=== PATIENT | female | born 1945 | race Caucasian/White ===

== ENCOUNTER 2019-03-28 08:14 | Inpatient (IN) ==
[~2019-03-28 08:14] MED LIST: BUPIVACAINE HCL/EPINEPHRINE 50 ML VIAL ONE; ISOPROPYL ALCOHOL 480 APPL BTL MC ONE; LIDOCAINE HCL 50 ML VIAL ONE; MIDAZOLAM HCL/PF 5 MG/ML VIAL ONE; MORPHINE SULFATE 15 MG TABLET.SA PO PRN; PROPOFOL VIAL IV ONE; ROPIVACAINE HCL/PF 100 MG, EPINEPHrine 0.2 MG, KETOROLAC TROMETHAMINE 15 MG in NORMAL S... IJ PRN; TRANEXAMIC ACID 1,000 MG in NORMAL SALINE 100 ML IV PRN; ceFAZolin SODIUM 1 GM VIAL IV PRN; ceFAZolin SODIUM 1 GM VIAL ONE
[2019-03-28] MEDS: RINGER'S SOLUTION,LACTATED 1,000 ML IV PRN ×4 (09:10→13:41)
--- NOTE | 2019-03-28 09:32 | ANES ---
Anesthesia Pre Procedure Eval Vitals/Labs: Last Vital Signs Temp 36.6 C 03/28/19 09:11 Pulse 77 03/28/19 09:11 Resp 18 03/28/19 09:11 BP 126/55 03/28/19 09:11 Pulse Ox 97 03/28/19 09:11 HOME MEDICATIONS Insulin Aspart [Novolog] 0 - 20 unit SQ ACHS PRN 02/14/13 [Last Taken 03/27/19] Nitroglycerin [Nitrostat] 0.4 mg SL [id number] PRN 02/14/13 [Last Taken Unknown] Blood-Glucose Meter [Blood Glucose Monitoring] 1 ea MC QID 12/01/16 [Last Taken 03/27/19] Cholecalciferol (Vitamin D3) [Vitamin D] 2,000 unit PO Q7D 12/01/16 [Last Taken 03/27/19] carvedilol 3.125 mg tablet 6.25 mg PO ONCE tab 10/06/17 [Last Taken 03/28/19] furosemide 20 mg tablet 40 mg PO DAILY 10/06/17 [Last Taken 03/27/19] acetaminophen 500 mg tablet 500 mg PO Q6H PRN 10/07/17 [Last Taken Unknown] albuterol sulfate 2.5 mg IH QID PRN #180 ml 04/21/18 [Last Taken Unknown] insulin degludec 100 unit/mL (3 mL) subcutaneous pen 56 unit SUB-Q HS ml 06/10/18 [Last Taken 03/26/19] Albuterol Sulfate [Proventil Hfa] 2 inh INHALATION Q4H PRN 09/29/18 [Last Taken Unknown] Allopurinol [Zyloprim] 300 mg PO DAILY 09/29/18 [Last Taken 03/27/19] Diphenhydramine HCl [Children's Benadryl Allergy] 12.5 mg PO HS PRN 09/29/18 [Last Taken Unknown] Ipratropium/Albuterol Sulfate [Iprat-Albut 0.5-3(2.5) mg/3 ml] 3 ml INHALATION Q4H PRN 09/29/18 [Last Taken Unknown] lisinopril 10 mg tablet 5 mg PO DAILY #45 tab 11/01/18 [Last Taken 03/28/19] levothyroxine 88 mcg tablet 88 mcg PO DAILY #30 tab 11/02/18 [Last Taken 03/27/19] traMADol HCL [Ultram] 50 mg PO QID PRN #120 tab 11/08/18 [Last Taken Unknown] duloxetine 60 mg capsule,delayed release 60 mg PO DAILY #30 cap 01/19/19 [Last Taken 03/27/19] Mag Salicylat/Acetaminoph/Caff [Back Pain-Off Tablet] 1 ea PO PRN PRN 03/28/19 [Last Taken Unknown] Syrge-Ndl,Ins 0.5 ml Half Kael [Techlite Insulin Syringe] 0 ea .ROUTE .MEDSUPPLY 03/28/19 [Last Taken 03/27/19] Syringe and Needle,Insulin,1Ml [Techlite Insulin Syringe] 0 ea .ROUTE .MEDSUPPLY 03/28/19 [Last Taken 03/27/19] Allergies/Adverse Reactions: Allergies Allergy/AdvReac Type Severity Reaction Status Date / Time Penicillins AdvReac Mild CAUSES Verified 03/24/19 08:47 YEAST INFECTION - Planned Procedure Planned Procedure: LTKA on 03/28, RTKA on 03/30 Medication List Reviewed:: Yes Allergies Verified: Yes Medical History (Last Reviewed 03/28/19 @ 09:30 by Kael Elizondo CRNA) Asthma Onset Date: 1969 CAD (coronary artery disease) Status post myocardial infarction w/coronary artery stenting CHF (congestive heart failure) CHF with LVEF 19% S/P PPm Chronic kidney disease, stage 3 Depression Onset Date: 1991 Diabetes Type II Fibrocystic breast disease (FCBD) in female Hyperlipidemia Onset Date: Unknown Hypothyroidism Onset Date: 1969 Migraine МАРИЯ (obstructive sleep apnea) does not wear CPAP due to clausterphobia Obesity PUD (peptic ulcer disease) Onset Date: 1997 Pacemaker Onset Date: 2010 with defib Polymyalgia rheumatica Rib fractures Steatohepatitis, nonalcoholic With possible cirrhosis and portal HTN based on CT findings. Dr. Borges [facility] Surgical History (Last Reviewed 03/28/19 @ 09:30 by Kael Elizondo CRNA) Cataract surgery 04/2015, 05/2015 left, right Defibrillator 2010 [place] History of appendectomy 1992 with gallbladder History of cholecystectomy 1992 [facility] - lap History of temporal artery biopsy 02/15/13 02/22/13 Dr. Elizabeth 02/15/13 - right. 02/22/13 - left. Benign History of total abdominal hysterectomy and bilateral salpingo-oophorectomy , pt states urethra torn during surgery and had to be repaired; had prolonged catheter placement after surgery Hx of Epidural Steroid Injection 11/21/13 L5-S1 Hx of angioplasty 2009, 03/2011. 2009 w/stent Hx of section 1966, 1968, 1972 Hx of knee surgery ?1982 Left knee ?Lateral Release Hx of placement of pacemaker 07/19/10, 02/16/17 Dr Tim in [place], [place] ICD placement. Replaced 2016. Family History (Last Reviewed 03/28/19 @ 09:30 by Kael Elizondo CRNA) Father , Age 86. Blood clot, [place], 2 aneurysms Myocardial infarction Mother , Age 79 Cancer Breast Daughter Alive and well Daughter Alive and well Son Alive and well - Family Anesthesia History Family History:: no untoward family reactions to anesthesia, no familial bleeding tendencies, no family history of clotting disorders, no family history of premature - Airway/Neck/Teeth Within Normal Limits:: Yes Neck Exam: full range of motion Mallampatti Score: 3 Thyromental (T-M) distance: > 6 cm Mandibulo Hyoid distance: > 3 cm - Respiratory Respiratory Physical: wheezing - left Smoking Status: Never smoker Sleep Apnea currently treated: Yes Sleep Apnea by current assessment: Yes - Cardiovascular Cardiac History: arrhythmia - pacemaker/defibulater, hypertension, hyperlipidemia Tolerate Activity: Fair Heart Sounds: S1 & S2, Regular - Anesthesia Assessment and Plan ASA Class: PS, III Anesthesia Type Plan: Block - adductor canal block for post op pain relief, Spinal
[2019-03-28] MEDS ORDERED: MORPHINE SULFATE 2 MG/ML DISP.SYRIN IV PRN (11:31)
[2019-03-28] MEDS ORDERED: MAG HYDROX/ALUMINUM HYD/SIMETH 30 ML UDC PO PRN (11:31)
[2019-03-28] MEDS ORDERED: ZOLPIDEM TARTRATE 5 MG TABLET PO PRN (11:31)
[2019-03-28] MEDS ORDERED: MAGNESIUM HYDROXIDE 30 ML UDC PO PRN (11:31)
[2019-03-28] MEDS ORDERED: diphenhydrAMINE HCL 50 MG/ML VIAL IV PRN (11:31)
[2019-03-28] MEDS ORDERED: NON-FORMULARY 1 DOSE DOSE (Albuterol Sulfate 2.5 MG) IH PRN (11:34)
[2019-03-28] MEDS ORDERED: ALBUTEROL SULFATE 2.5 MG/0.5 ML VIAL.NEB IH PRN (11:34)
[2019-03-28] MEDS ORDERED: NITROGLYCERIN 0.4 MG/TAB BTL SL PRN (11:34)
[2019-03-28] MEDS ORDERED: INSULIN LISPRO 100 UNITS/ML VIAL SC PRN (11:34)
--- NOTE | 2019-03-28 11:37 | OR ---
Operative Report - Dictated Report Narrative: Date: 03/28/2019 Preoperative diagnosis: Left knee degenerative joint disease. Postoperative diagnosis: Left knee degenerative joint disease. Procedure: Left total knee arthroplasty. Surgeon: Cm Sanchez M.D. Principal Librarian: Ismael Vasquez PA-C (provided and essential set of skilled, educated hands that assisted with transfer, positioning, prepping, draping, manipulation, retraction, placement of jigs, injection, insertion of implants, irrigation, closure wounds, and dressings all of which could not be performed by the available surgical crew) Anesthesia: Spinal with regional block and local periarticular joint injection. Complications: None Specimens: Bone. Estimated blood loss: Minimal. Tourniquet time: 90 Minutes at 325 millimeters of mercury. Retained implants: Depuy Attune size 7 left lugged cemented posterior stabilized femoral component. Size 5 fixed-bearing cemented tibial platform. 7 by 5 millimeter posterior stabilized cross-linked tibial insert. 38 millimeter medialized patella button. Indications: Mrs. Bernabe is a 73-year-old female who has had longstanding bilateral knee pain and arthrosis. She is here today for left total knee. This patient was followed in my clinic for period of time with significant complaints of left knee pain consistent with arthritic changes. She had failed conservative measures including, but not limited to, activity modification, passage of time, medications, and other conservative measures. Patient wished to proceed with surgical treatment. The risks, benefits, and alternatives were discussed in clinic. The risks of , blood clots, bleeding, infection, nerve/tendon blood vessel/ injury, malposition of components, intraoperative fracture, postoperative limited range of motion, persistent pain, failure of components, and need for additional procedures. Patient wished to proceed consent was obtained after answering all questions. Procedure: After marking the correct extremity on the floor, the patient was taken to the operating room. A timeout was performed. IV antibiotics consisting of Ancef were administered prior to the procedure. A regional followed by spinal anesthetic was induced by anesthesia, per my request, on the operative table with all bony prominences well-padded. Jacobs catheter was placed, and a bump was placed under the operative side buttock. SCDs and ANICETO hose were utilized on the nonoperative leg. A well-padded tourniquet was applied to the operative thigh. The operative leg was then pre-scrubbed with alcohol, prepped, and draped in a standard sterile fashion. After exsanguinating the extremity with an Esmarch bandage, the tourniquet was inflated. After marking out the anterior knee for standard incision centered over the patella, the skin was incised and dissected down to the joint retinaculum. The joint retinaculum was marked out as well as the horizontal axis of the patella, and a standard medial parapatellar arthrotomy was then made. The most proximal aspect of the quadriceps tendon and the patella tendon insertion were protected from release. A partial synovectomy was performed as well as a resection of the infrapatellar fat pad. The distal femoral fat pad proximal to the trochlea was also resected using cautery. The soft tissues were elevated off the medial aspect of the proximal tibia using a Turner elevator ensuring that we did not transect the medial collateral ligament. Upon initial evaluation range of motion was approximately 0 degrees to 120 degrees of flexion. There were signs of advanced arthrosis in the medial, lateral, and patellofemoral joint spaces. There were large marginal osteophytes which were removed with a rongeur. The knee was hyperflexed and the patella was tucked laterally. Protecting the surrounding soft tissues with Homans, an entry drill was placed down the femoral canal using Whitesides line for guidance into the entry point. The intramedullary femoral alignment bhupinder was utilized in order to cut the distal femur in 5 degrees of valgus resecting 10 millimeters of bone. Next the distal femur was sized to a size 7. A posterior referencing guide was utilized to place the distal femoral cutting block in 3 degrees of external rotation. This was pinned into place. The rotation was confirmed both visually and based on anatomic landmarks. The 4 in 1 cutting jig of the appropriate size was utilized in order to make all bony cuts. The angle wing was used to ensure no notching. Retractors were utilized in order to protect surrounding soft tissues. This cut did not result in any excessive notching. We then cut the box centered over the distal femur. This allowed for resection of the anterior and posterior cruciate ligaments. I then turned my attention to the preparation of the tibia. Using an extra medullary tibial alignment bhupinder, 5 millimeters of bone was resected off the medial articular surface. This was made perpendicular to the mechanical axis of the joint with the alignment bhupinder centered over the ankle mortise. The alignment bhupinder was checked and was noted to be parallel to the mechanical axis, centered over the medial one third of the tibial tubercle, paralleling the anterior surface of the tibia. We then turned our attention to the remaining meniscus and soft tissues. These were removed while protecting the surrounding ligaments and soft tissues. The marginal osteophytes off the anterior, posterior, medial, lateral aspects of the femur and tibia were removed. The tibia was sized out to a size 5. Next the tibia was drilled and punched in an externally rotated position. Next the trial femur and a series of tibial inserts were utilized in order to allow for full extension and maximal flexion. It was found that a 5 millimeter insert gave the best range of motion and stability at multiple flexion points as well as at full extension there was less than 2 mm of gapping both medially and laterally. There is minimal anterior translation with the knee at 90 degrees of flexion and no signs of being able to dislocate the knee. The patella was then prepared. The initial thickness was 20 millimeters. This was reamed down to 12 millimeters parallel to the anterior surface of the patella. It was sized out to a size 38 medialized patella button. This was then drilled and trialed. Without any medial restraint the patella tracked appropriately and did not sublux or dislocate. At this point, it was felt these were the appropriate sized implants, and all trials were removed. The standard periarticular joint injection consisting of ropivacaine, Toradol, and epinephrine were injected into the periarticular joint tissues. The bony surfaces were thoroughly irrigated with a pulsatile-suction saline irrigation device. A bone plug from the prior resected anterior chamfer cut was placed into the drill hole at the distal femur. The bony surfaces were then dried in preparation for placement of the implants. The cement was vacuum mixed per the disability advocate's instructions. The cement was placed on the dry bony surfaces and posterior aspect of the implants. The implants were impacted into place, removing all extruded cement. At this point anesthesia administered tranexamic acid per protocol intravenously. The knee was placed in extension with axial loading with the trial insert while the cement cured. Once the cement cured, all remaining extruded cement was removed. The knee was placed through a range of motion with the trial insert to ensure appropriate range of motion and stability. Final range of motion was approximately 0 to 120 degrees. The knee was again thoroughly irrigated with pulsatile saline lavage. The final polyethylene insert was then impacted into place ensuring no retained soft tissues. The remaining periarticular joint injection was injected. A medium Hemovac drain was placed exiting superior laterally. The knee was then placed over a triangle and the arthrotomy was closed with interrupted #1 Vicryl after thoroughly irrigating the joint. The deep and subcutaneous tissues were closed with interrupted 0 and 3-0 Vicryl respectively. Skin was closed with a running subcutaneous 3-0 Monocryl and Prineo Dermabond dressing. 4 x 4's, Sof-Rol, and a full leg Hamilton wrap were applied. All sponge, needle, blade, and instrument counts were correct prior to closing the wounds. Postoperative condition: The patient was awoken and transferred to the postanesthesia care unit in stable condition. Plan is to be admitted to the inpatient medical/surgical floor postoperatively for 24 hours of IV antibiotics, physical therapy, occupational therapy, and medical comanagement. Patient will be weightbearing as tolerated with range of motion as tolerated. DVT prophylaxis will be with SCDs, ANICETO hose, and pharmacological anticoagulation. Anticipated hospital stay is approximately 1-3 days.
--- NOTE | 2019-03-28 11:50 | ANES ---
Anesthesia Procedure Note Procedure Note: ANESTHESIA PROCEDURE NOTE Date of Procedure: [03/28/2019 Time of procedure: 9:45 AM. Performed by: THOMAS Arroyo CRNA, MSN Completions Manager: Shawna Porras RN. Preprocedure diagnosis: Post left knee arthroplasty pain. Post procedure diagnosis: Same. Procedure: Left adductor Canal Block. Indications: Post left knee arthroplasty pain relief. Findings: See below. Details of the procedure: The patient was brought to OR #2 and placed in supine position. The patient's left femoral area to the knee was prepped with chlorhexidine and using ultrasound guidance the left femoral artery and nerve was identified and then followed to the level of the adductor canal. Lidocaine 1% was infiltrated to the skin of the intended injection site. Under ultrasound guidance the saphenous nerve was approached with visualization of a 4 inch shielded block needle. Once saphenous nerve was identified with proximity to the needle tip, the saphenous nerve was surrounded with 20 mL bupivacaine 0.25% with 1-200,000 epinephrine. Please see radiology/ultrasound report for details and retained images of the procedure. EBL: 0 Fluids: N/A. Specimen: N/A. Post procedure condition: The patient tolerated the procedure well. No complications were noted. Thank you for this consultation. Kael Elizondo CRNA, ARNP, MSN
--- NOTE | 2019-03-28 11:50 | ANES ---
Post Anesthesia Discharge - Transfer of Care Transfer of Care handoff given to nurse: Yes - Discharge from PACU Discharge from PACU when meets criteria: Yes - Awake and comfortable.
[2019-03-28] MEDS ORDERED: CARVEDILOL 6.25 MG TABLET PO SCH (12:00)
--- NOTE | 2019-03-28 12:05 | ANES ---
Post Anesthesia Assessment - Vital Signs Vitals: Last Vital Signs Temp 37.3 C 03/28/19 11:45 Pulse 73 03/28/19 12:00 Resp 12 03/28/19 12:00 BP 108/50 03/28/19 12:00 Pulse Ox 97 03/28/19 12:00 Airway Patency: Normal - Mental Status Level Of Consciousness: Awake, Alert, Appropriate - Pain Level Pain Score: 0 - N/V Assessment Nausea/Vomiting Presence: None Dehydration:: No
[2019-03-28] MEDS: KETOROLAC TROMETHAMINE 15 MG/ML VIAL IV SCH ×3 (13:44→22:57)
[2019-03-28] MEDS: LISINOPRIL 5 MG TABLET PO SCH (13:46)
[2019-03-28] MEDS: CARVEDILOL 6.25 MG TABLET PO SCH ×2 (13:46→20:55)
[2019-03-28] MEDS: DULoxetine HCL 30 MG CAPSULE.SA PO SCH (13:46)
[2019-03-28] MEDS: LEVOTHYROXINE SODIUM 88 MCG TABLET PO SCH (13:46)
[2019-03-28] MEDS: FUROSEMIDE 40 MG TABLET PO SCH (13:47)
[2019-03-28] MEDS: ALLOPURINOL 300 MG TABLET PO SCH (13:48)
[2019-03-28] MEDS: CEFAZOLIN SODIUM/DEXTROSE,ISO 1 GM/50 ML BAG IV SCH ×2 (14:07→20:39)
[2019-03-28] MEDS: oxyCODONE HCL/ACETAMINOPHEN 1 TAB TABLET PO PRN ×2 (18:42→22:50)
[2019-03-28] MEDS: INSULIN LISPRO 100 UNITS/ML VIAL SC SCH ×2 (20:57→21:08)
[2019-03-28] MEDS: SENNOSIDES/DOCUSATE SODIUM 1 TAB TABLET PO SCH (20:59)
[2019-03-28] MEDS: MORPHINE SULFATE 15 MG TABLET.SA PO SCH (20:59)
[2019-03-29] MEDS: CEFAZOLIN SODIUM/DEXTROSE,ISO 1 GM/50 ML BAG IV SCH (00:35)
[2019-03-29] MEDS: ALBUTEROL SULFATE/IPRATROPIUM 3 ML NEBU IH PRN (00:50)
[2019-03-29] MEDS: KETOROLAC TROMETHAMINE 15 MG/ML VIAL IV SCH (05:03)
[2019-03-29 06:57] LABS: Hematocrit 32.8 % (37.0-47.0); Mean Cell Volume 101.5 fl (78-100); Mean Corpuscular Hemoglobin 34.1 pg (27-31); Mean Corpuscular Hgb Conc 33.5 g/dl (32-36); Mean Platelet Volume 9.3 fl (8-12.5); Platelet Count 191 K/mm3 (150-450); Red Blood Count 3.23 M/mm3 (4.2-5.4); Red Cell Distribution Width 13.2 % (11.5-14.0); White Blood Count 9.7 K/mm3 (4.0-10.5)
[2019-03-29] MEDS: oxyCODONE HCL/ACETAMINOPHEN 1 TAB TABLET PO PRN ×2 (07:02→16:17)
[2019-03-29 07:05] LABS: Anion Gap 7.3 mmol/L (6.8-13.8); BUN/Creatinine Ratio 16.2 (9.0-21.6); Calcium * 8.6 mg/dL (7.9-10.9); Carbon Dioxide 34.3 mmol/L (24-32.6); Estimated Creat Clear 18.1; Potassium 4.6 mmol/L (3.4-4.6)
[2019-03-29] MEDS: CHOLECALCIFEROL 1,000 UNIT CAPSULE PO SCH (07:18)
[2019-03-29] MEDS: LEVOTHYROXINE SODIUM 88 MCG TABLET PO SCH (07:23)
[2019-03-29] MEDS: INSULIN LISPRO 100 UNITS/ML VIAL SC SCH ×4 (07:26→21:02)
--- NOTE | 2019-03-29 08:01 | PN ---
Subjective - Date and Time Seen Date: 03/29/19 Time: 07:58 Subjective Narrative: Subjective: Reports some decreased oxygenation last night required nasal cannula oxygen but is doing better this morning. Her pain is tolerable. Was able to get to the chair with therapy. Pain is well-controlled. Voiding without any complications. Tolerating by mouth intake. Denies any nausea or vomiting. Denies calf pain. Slept well. Physical exam: Alert and oriented to person, place and time Left lower extremity: Palpable dorsalis pedis pulse. Sensation grossly intact to light touch. Dressings clean and dry. Able to flex and extend ankle and toes. No excessive drainage. Calf and thigh are soft and nontender. Assessment: Postop day 1 status post left total knee arthroplasty. Plan: Due to the need for pain control, post-operative limited mobility, protection of the surgical site and joint, monitoring of the wound, and the management of chronic medical conditions, she requires continued inpatient care. Continue with physical and occupational therapy weightbearing as tolerated. Continue with anticoagulation. 24 hours postoperative prophylactic antibiotics. Pain control with goal to rely on oral medications. Continue bowel regimen. Will need 6 weeks with walker or assitive device to protect joint while ambulating during the recovery process. Discontinue drain. She will be n.p.o. after midnight for planned right total knee tomorrow. Continue with therapy. Hold Lovenox tomorrow. We discontinued her Toradol secondary to some renal insufficiency. Objective - Vitals Vitals: Last Vital Signs Temp 36.6 C 03/29/19 06:42 Pulse 76 03/29/19 06:42 Resp 12 03/29/19 06:42 BP 114/60 03/29/19 06:42 Pulse Ox 100 03/29/19 06:42 - Abnormal Lab Findings Abnormal Lab Findings: Abnormal Lab Results 03/29/19 03/29/19 Range/Units 06:52 06:52 RBC 3.23 L (4.2-5.4) M/mm3 Hgb 11.0 L (12.5-16.0) gm/dL Hct 32.8 L (37.0-47.0) % MCV 101.5 H (78-100) fl MCH 34.1 H (27-31) pg Carbon Dioxide 34.3 H (24-32.6) mmol/L BUN 33 H (3-23) mg/dL Creatinine 2.04 H D (0.4-1.4) mg/dL Est GFR (Non-Af Amer) 25 L D (60-130) mL/min Random Glucose 175 H (70-110) mg/dL Cauti Physician Documentation - Urinary Catheter Management Urethral (Jacobs) Urethral Indwelling: Yes Reason for Continuing Indwelling Catheter: Surgical Procedure Date of Insertion: 03/28/19 Time of Insertion: 10:05 Assessment/Plan - Problems/Diagnosis (1) Status post total left knee replacement Problem: Acute (2) Acute renal insufficiency Problem: Acute (3) Anxiety and depression Problem: Chronic (4) Asthma Problem: Chronic Qualifiers: (5) CAD (coronary artery disease) Problem: Chronic Qualifiers: (6) CHF (congestive heart failure) Problem: Chronic Qualifiers: (7) CRF (chronic renal failure) Problem: Chronic Qualifiers: (8) Diabetes mellitus Problem: Chronic Qualifiers: (9) Hyperlipidemia Problem: Chronic Qualifiers: (10) Hypothyroidism Problem: Chronic Qualifiers: (11) МАРИЯ (obstructive sleep apnea) Problem: Chronic
[2019-03-29] MEDS: MORPHINE SULFATE 15 MG TABLET.SA PO SCH ×2 (09:35→22:47)
[2019-03-29] MEDS: DULoxetine HCL 30 MG CAPSULE.SA PO SCH (09:35)
[2019-03-29] MEDS: CARVEDILOL 6.25 MG TABLET PO SCH ×2 (09:36→21:46)
[2019-03-29] MEDS: ALLOPURINOL 300 MG TABLET PO SCH (09:36)
[2019-03-29] MEDS: LISINOPRIL 5 MG TABLET PO SCH (09:36)
[2019-03-29] MEDS: FUROSEMIDE 40 MG TABLET PO SCH (09:39)
[2019-03-29] MEDS: ONDANSETRON HCL/PF 2 MG/ML VIAL IV PRN (10:10)
[2019-03-29] MEDS: ENOXAPARIN SODIUM 40 MG/0.4 ML SYRG SC SCH (10:13)
[2019-03-29] MEDS: ACETAMINOPHEN 500 MG TABLET PO PRN (21:47)
[2019-03-29] MEDS: SENNOSIDES/DOCUSATE SODIUM 1 TAB TABLET PO SCH (21:47)
[2019-03-30] MEDS: RINGER'S SOLUTION,LACTATED 1,000 ML IV PRN (03:41)
[2019-03-30] MEDS ORDERED: PROPOFOL VIAL IV ONE (07:05)
[2019-03-30] MEDS ORDERED: ONDANSETRON HCL/PF 2 MG/ML VIAL ONE (07:05)
[2019-03-30] MEDS ORDERED: LIDOCAINE HCL 50 ML VIAL ONE (07:05)
[2019-03-30] MEDS ORDERED: BUPIVACAINE HCL/EPINEPHRINE 50 ML VIAL ONE (07:06)
[2019-03-30] MEDS ORDERED: MIDAZOLAM HCL/PF 5 MG/ML VIAL ONE (07:06)
[2019-03-30] MEDS ORDERED: ROPIVACAINE HCL/PF 100 MG, EPINEPHrine 0.2 MG in NORMAL SALINE 100 ML IJ PRN (07:24)
[2019-03-30] MEDS ORDERED: TRANEXAMIC ACID 1,000 MG in NORMAL SALINE 100 ML IV PRN (07:24)
[2019-03-30] MEDS ORDERED: ceFAZolin SODIUM 1 GM VIAL IV PRN (07:25)
[2019-03-30] MEDS ORDERED: RINGER'S SOLUTION,LACTATED 1,000 ML IV PRN (07:26)
[2019-03-30] MEDS ORDERED: MORPHINE SULFATE 15 MG TABLET.SA PO PRN (07:26)
[2019-03-30] MEDS: LEVOTHYROXINE SODIUM 88 MCG TABLET PO SCH (07:27)
[2019-03-30] MEDS: INSULIN LISPRO 100 UNITS/ML VIAL SC SCH ×4 (07:27→21:50)
[2019-03-30] MEDS ORDERED: HYDROcodone/ACETAMINOPHEN 1 EACH TABLET PO PRN (07:45)
[2019-03-30 08:15] LABS: Anion Gap 14.5 mmol/L (6.8-13.8); Bilirubin, Total 0.7 mg/dL (0.0-1.1); Ca. Corrected For Albumin 9.5 mg/dL (8.4-10.2); Carbon Dioxide 29.4 mmol/L (24-32.6); Potassium 4.9 mmol/L (3.4-4.6); Total Protein 6.1 gm/dL (6.2-8.2)
--- NOTE | 2019-03-30 08:29 | ANES ---
Anesthesia Pre Procedure Eval Vitals/Labs: Last Vital Signs Temp 37.1 C 03/30/19 06:48 Pulse 86 03/30/19 06:48 Resp 18 03/30/19 06:48 BP 93/56 03/30/19 06:48 Pulse Ox 95 03/30/19 06:48 HOME MEDICATIONS Insulin Aspart [Novolog] 0 - 20 unit SQ ACHS PRN 02/14/13 [Last Taken 03/27/19] Nitroglycerin [Nitrostat] 0.4 mg SL [id number] PRN 02/14/13 [Last Taken Unknown] Blood-Glucose Meter [Blood Glucose Monitoring] 1 ea MC QID 12/01/16 [Last Taken 03/27/19] Cholecalciferol (Vitamin D3) [Vitamin D] 2,000 unit PO Q7D 12/01/16 [Last Taken 03/27/19] carvedilol 3.125 mg tablet 6.25 mg PO ONCE tab 10/06/17 [Last Taken 03/28/19] furosemide 20 mg tablet 40 mg PO DAILY 10/06/17 [Last Taken 03/27/19] acetaminophen 500 mg tablet 500 mg PO Q6H PRN 10/07/17 [Last Taken Unknown] albuterol sulfate 2.5 mg IH QID PRN #180 ml 04/21/18 [Last Taken Unknown] insulin degludec 100 unit/mL (3 mL) subcutaneous pen 56 unit SUB-Q HS ml 06/10/18 [Last Taken 03/26/19] Albuterol Sulfate [Proventil Hfa] 2 inh INHALATION Q4H PRN 09/29/18 [Last Taken Unknown] Allopurinol [Zyloprim] 300 mg PO DAILY 09/29/18 [Last Taken 03/27/19] Diphenhydramine HCl [Children's Benadryl Allergy] 12.5 mg PO HS PRN 09/29/18 [Last Taken Unknown] Ipratropium/Albuterol Sulfate [Iprat-Albut 0.5-3(2.5) mg/3 ml] 3 ml INHALATION Q4H PRN 09/29/18 [Last Taken Unknown] lisinopril 10 mg tablet 5 mg PO DAILY #45 tab 11/01/18 [Last Taken 03/28/19] levothyroxine 88 mcg tablet 88 mcg PO DAILY #30 tab 11/02/18 [Last Taken 03/27/19] traMADol HCL [Ultram] 50 mg PO QID PRN #120 tab 11/08/18 [Last Taken Unknown] duloxetine 60 mg capsule,delayed release 60 mg PO DAILY #30 cap 01/19/19 [Last Taken 03/27/19] Mag Salicylat/Acetaminoph/Caff [Back Pain-Off Tablet] 1 ea PO PRN PRN 03/28/19 [Last Taken Unknown] Syrge-Ndl,Ins 0.5 ml Half Kael [Techlite Insulin Syringe] 0 ea .ROUTE .MEDSUPPLY 03/28/19 [Last Taken 03/27/19] Syringe and Needle,Insulin,1Ml [Techlite Insulin Syringe] 0 ea .ROUTE .MEDSUPPLY 03/28/19 [Last Taken 03/27/19] Allergies/Adverse Reactions: Allergies Allergy/AdvReac Type Severity Reaction Status Date / Time Penicillins AdvReac Mild CAUSES Verified 03/24/19 08:47 YEAST INFECTION - Planned Procedure Planned Procedure: LTKA on 03/28, RTKA on 03/30 Medication List Reviewed:: Yes Allergies Verified: Yes Medical History (Last Reviewed 03/30/19 @ 08:27 by Inderjit Song CRNA) Asthma Onset Date: 1969 CAD (coronary artery disease) Status post myocardial infarction w/coronary artery stenting CHF (congestive heart failure) CHF with LVEF 19% S/P PPm Chronic kidney disease, stage 3 Depression Onset Date: 1991 Diabetes Type II Fibrocystic breast disease (FCBD) in female Hyperlipidemia Onset Date: Unknown Hypothyroidism Onset Date: 1969 Migraine МАРИЯ (obstructive sleep apnea) does not wear CPAP due to clausterphobia Obesity PUD (peptic ulcer disease) Onset Date: 1997 Pacemaker Onset Date: 2010 with defib Polymyalgia rheumatica Rib fractures Steatohepatitis, nonalcoholic With possible cirrhosis and portal HTN based on CT findings. Dr. Borges [facility] Surgical History (Last Reviewed 03/30/19 @ 08:27 by Inderjit Song CRNA) Cataract surgery 04/2015, 05/2015 left, right Defibrillator 2010 [place] History of appendectomy 1992 with gallbladder History of cholecystectomy 1992 [facility] History of temporal artery biopsy 02/15/13 02/22/13 Dr. Elizabeth 02/15/13 - right. 02/22/13 - left. Benign History of total abdominal hysterectomy and bilateral salpingo-oophorectomy , pt states urethra torn during surgery and had to be repaired; had prolonged catheter placement after surgery Hx of Epidural Steroid Injection 11/21/13 L5-S1 Hx of angioplasty 2009, 03/2011. 2009 w/stent Hx of section 1966, 1968, 1972 Hx of knee surgery ?1982 Left knee ?Lateral Release Hx of placement of pacemaker 07/19/10, 02/16/17 Dr Tim in [place], [place] ICD placement. Replaced 2016. Family History (Last Reviewed 03/30/19 @ 08:27 by Inderjit Song CRNA) Father , Age 86. Blood clot, [place], 2 aneurysms Myocardial infarction Mother , Age 79 Cancer Breast Daughter Alive and well Daughter Alive and well Son Alive and well - Family Anesthesia History Family History:: no untoward family reactions to anesthesia, no familial bleeding tendencies, no family history of clotting disorders, no family history of premature - Airway/Neck/Teeth Within Normal Limits:: Yes Mallampatti Score: 3 Thyromental (T-M) distance: > 6 cm Mandibulo Hyoid distance: > 3 cm - Respiratory Respiratory Physical: decreased breath sounds Smoking Status: Never smoker Discussed smoking cessation including day of surgery: No Sleep Apnea currently treated: Yes - Cardiovascular Tolerate Activity: Poor Heart Sounds: S1 & S2, Regular - Gastrointestinal NPO since: m[place] - Anesthesia Assessment and Plan ASA Class: PS, III Anesthesia Type Plan: Block - ultrasound guided adductor canal nerve block for postop analgesia, Spinal
[2019-03-30] MEDS ORDERED: NORMAL SALINE 1,000 ML IV ONE (09:39)
[2019-03-30] MEDS: LISINOPRIL 5 MG TABLET PO SCH (10:46)
[2019-03-30] MEDS: CARVEDILOL 6.25 MG TABLET PO SCH ×2 (10:46→21:45)
[2019-03-30] MEDS ORDERED: MORPHINE SULFATE 2 MG/ML DISP.SYRIN IV PRN (11:03)
[2019-03-30 11:14] LABS: BNP * 226 pg/mL (5-325); Troponin I Less than 0.017 ng/mL (0.00-0.10)
[2019-03-30] MEDS: ENOXAPARIN SODIUM 40 MG/0.4 ML SYRG SC SCH (11:26)
[2019-03-30] MEDS: DULoxetine HCL 30 MG CAPSULE.SA PO SCH (11:27)
[2019-03-30] MEDS: ALLOPURINOL 300 MG TABLET PO SCH (11:28)
[2019-03-30] MEDS: FUROSEMIDE 40 MG TABLET PO SCH (11:28)
--- NOTE | 2019-03-30 11:28 | PN ---
Subjective - Date and Time Seen Date: 03/30/19 Time: 11:24 Subjective Narrative: Subjective: Renal output was decreased last night. She is been somewhat sedated since last evening. Pain medicines have been held. Was able to get to the chair with therapy. Pain is well-controlled. Catheter is in place tolerating by mouth intake. Denies any nausea or vomiting. Denies calf pain. Physical exam: Alert and oriented to person, place and time Left lower extremity: Palpable dorsalis pedis pulse. Sensation grossly intact to light touch. Dressings clean and dry. Able to flex and extend ankle and toes. No excessive drainage. Calf and thigh are soft and nontender. Assessment: Postop day 2 status post left total knee arthroplasty. Plan: Due to the need for pain control, post-operative limited mobility, protection of the surgical site and joint, monitoring of the wound, and the management of chronic medical conditions, she requires continued inpatient care. Continue with physical and occupational therapy weightbearing as tolerated. Continue with anticoagulation. Her primary care physician is going to assist with her medical issues. Labs have been unremarkable regards to any acute events and chest x-ray is negative. I feel a lot of her sedation is due to narcotics and these are being held at this time. She does have worsening of her renal function and we will continue IV fluids and follow the recommendations of her medical doctor. Pain control with goal to rely on oral medications. Continue bowel regimen. Will need 6 weeks with walker or assitive device to protect joint while ambulating during the recovery process. Objective - Vitals Vitals: Last Vital Signs Temp 36.6 C 03/30/19 09:30 Pulse 85 03/30/19 10:46 Resp 20 03/30/19 09:30 BP 91/51 03/30/19 10:46 Pulse Ox 86 L 03/30/19 09:38 - Abnormal Lab Findings Abnormal Lab Findings: Abnormal Lab Results 03/30/19 03/30/19 Range/Units 07:45 10:40 pO2 78.8 L (83.0-108.0) mmHg Base Excess -3.9 L (-2.0-3.0) mmol/L ABG pH 7.32 L (7.35-7.45) Potassium 4.9 H (3.4-4.6) mmol/L Anion Gap 14.5 H (6.8-13.8) mmol/L BUN 45 H (3-23) mg/dL Creatinine 3.01 H D (0.4-1.4) mg/dL Est GFR (Non-Af Amer) 16 L D (60-130) mL/min Random Glucose 133 H (70-110) mg/dL ALT 7 L (19-67) U/L Total Protein 6.1 L (6.2-8.2) gm/dL Albumin 3.0 L (3.4-5.0) gm/dl Cauti Physician Documentation - Urinary Catheter Management Urethral (Jacobs) Urethral Indwelling: Yes Date of Insertion: 03/28/19 Time of Insertion: 10:05 Assessment/Plan - Problems/Diagnosis (1) Status post total left knee replacement Problem: Acute (2) Acute renal insufficiency Problem: Acute Narrative: Her BUN and creatinine have been elevated for the last 2 days. She will continue IV fluids and monitoring her output. She is encouraged to intake oral fluids as well. Her medical doctor is going to assist with medical management of this. If this improves in the next 24 to 36 hours the plan will be to proceed with her contralateral total knee. (3) Anxiety and depression Problem: Chronic (4) Asthma Problem: Chronic Qualifiers: (5) CAD (coronary artery disease) Problem: Chronic Qualifiers: (6) CHF (congestive heart failure) Problem: Chronic Qualifiers: (7) CRF (chronic renal failure) Problem: Chronic Qualifiers: (8) Diabetes mellitus Problem: Chronic Qualifiers: (9) Hyperlipidemia Problem: Chronic Qualifiers: (10) Hypothyroidism Problem: Chronic Qualifiers: (11) МАРИЯ (obstructive sleep apnea) Problem: Chronic
--- NOTE | 2019-03-30 12:30 | CONS ---
HPI - General Date of Service: 03/30/19 Narrative: Shaan Bernabe is a 73 year old white female with PMH of CAD, CHF, CRF, DM type2, pacemaker for SSS, DEL ANGEL who undwerwent LTKR 3 days ago and was going for her other knee today but was cancelled due to ARF on CRF. Her urine output has been poor. She was also noted to be drowsy and would get hypoxic when she sleeps. Her Cr has bumped up to 3.01 from 1.18 in 03/24/2019, K is 4.9, WBC WNL, Hb 11 from 12 yesterday, FBS 133, AG is 14.5. As per nurse she has not gotten any narcotic for the last 24 hours. I ordered for an EKG which showed paced rhythm, normal troponin and BNP and her CXR showed no acute cardiopulmonary findings. Her ABG showed acute respiratory acidosis with mild hypoxemia. Lactic acid was normal. [place] and UA are pending. Source: patient - History of Present Illness Allergies/Adverse Reactions: Allergies Penicillins Adverse Reaction (Mild, Verified 03/24/19 08:47) CAUSES YEAST INFECTION Home Medications: Home Medications Medication Instructions Recorded Last Taken Insulin Aspart [Novolog] 0 - 20 unit SQ ACHS PRN 02/14/13 03/27/19 Nitroglycerin [Nitrostat] 0.4 mg SL [id number] PRN 02/14/13 Unknown Blood-Glucose Meter [Blood Glucose 1 ea MC QID 12/01/16 03/27/19 Monitoring] Cholecalciferol (Vitamin D3) 2,000 unit PO Q7D 12/01/16 03/27/19 [Vitamin D] carvedilol 3.125 mg tablet 6.25 mg PO ONCE tab 10/06/17 03/28/19 furosemide 20 mg tablet 40 mg PO DAILY 10/06/17 03/27/19 acetaminophen 500 mg tablet 500 mg PO Q6H PRN 10/07/17 Unknown albuterol sulfate 2.5 mg IH QID PRN #180 ml 04/21/18 Unknown insulin degludec 100 unit/mL (3 56 unit SUB-Q HS ml 06/10/18 03/26/19 mL) subcutaneous pen Albuterol Sulfate [Proventil Hfa] 2 inh INHALATION Q4H PRN 09/29/18 Unknown Allopurinol [Zyloprim] 300 mg PO DAILY 09/29/18 03/27/19 Diphenhydramine HCl [Children's 12.5 mg PO HS PRN 09/29/18 Unknown Benadryl Allergy] Ipratropium/Albuterol Sulfate 3 ml INHALATION Q4H PRN 09/29/18 Unknown [Iprat-Albut 0.5-3(2.5) mg/3 ml] lisinopril 10 mg tablet 5 mg PO DAILY #45 tab 11/01/18 03/28/19 levothyroxine 88 mcg tablet 88 mcg PO DAILY #30 tab 11/02/18 03/27/19 traMADol HCL [Ultram] 50 mg PO QID PRN #120 tab 11/08/18 Unknown duloxetine 60 mg capsule,delayed 60 mg PO DAILY #30 cap 01/19/19 03/27/19 release Mag Salicylat/Acetaminoph/Caff 1 ea PO PRN PRN 03/28/19 Unknown [Back Pain-Off Tablet] Syrge-Ndl,Ins 0.5 ml Half Kael 0 ea .ROUTE .MEDSUPPLY 03/28/19 03/27/19 [Techlite Insulin Syringe] Syringe and Needle,Insulin,1Ml 0 ea .ROUTE .MEDSUPPLY 03/28/19 03/27/19 [Techlite Insulin Syringe] Procedures Biopsy of blood vessel (02/22/13) Injection of anesthetic into spinal canal for analgesia (11/21/13) Injection of other agent into spinal canal (11/21/13) Injection of steroid (11/21/13) Replacement of Left Lens with Synthetic Substitute, Percutaneous Approach (04/09/15) Medications - Medications Current Medications: Current Medications Acetaminophen (Tylenol) 1,000 mg PO Q6H PRN PRN Reason: Mild pain (pain scale 1-3) Stop: 04/27/19 11:32 Last Admin: 03/29/19 21:47 Dose: 1,000 mg Documented by: Albuterol/Ipratropium (Duoneb 2.5-0.5mg/3ml Soln) 3 ml IH Q4H PRN PRN Reason: Shortness Of Breath Stop: 04/27/19 11:35 Last Admin: 03/29/19 00:50 Dose: 3 ml Documented by: Allopurinol (Zyloprim) 300 mg PO DAILY ON LICENSE OF [facility] Stop: 04/27/19 12:01 Last Admin: 03/30/19 11:28 Dose: Not Given Documented by: Carvedilol (Coreg) 6.25 mg PO BID ON LICENSE OF [facility] Stop: 04/27/19 12:01 Last Admin: 03/30/19 10:46 Dose: Not Given Documented by: Cholecalciferol (Vitamin D) 2,000 unit PO Q7D ON LICENSE OF [facility] Stop: 04/27/19 12:01 Last Admin: 03/29/19 07:18 Dose: Not Given Documented by: Duloxetine HCl (Cymbalta) 60 mg PO DAILY ON LICENSE OF [facility] Stop: 04/27/19 12:01 Last Admin: 03/30/19 11:27 Dose: Not Given Documented by: Enoxaparin Sodium (Lovenox) 40 mg SC Q24H ON LICENSE OF [facility] Stop: 04/28/19 10:32 Last Admin: 03/30/19 11:26 Dose: 40 mg Documented by: Furosemide (Lasix) 40 mg PO DAILY ON LICENSE OF [facility] Stop: 04/27/19 12:01 Last Admin: 03/30/19 11:28 Dose: Not Given Documented by: Sodium Chloride (Sodium Chloride 0.9%) 1,000 mls @ 200 mls/hr IV .Q5H ONE Stop: 03/30/19 14:38 Last Admin: 03/30/19 10:00 Dose: 200 mls/hr Documented by: Insulin Human Lispro (Humalog) 0 units SC ACHS ON LICENSE OF [facility]; Protocol Stop: 04/27/19 21:01 Last Admin: 03/30/19 11:29 Dose: Not Given Documented by: Levothyroxine Sodium (Synthroid) 88 mcg PO DAILY@0700 ON LICENSE OF [facility] Stop: 04/27/19 12:01 Last Admin: 03/30/19 07:27 Dose: Not Given Documented by: Lisinopril (Zestril) 5 mg PO DAILY ON LICENSE OF [facility] Stop: 04/27/19 12:01 Last Admin: 03/30/19 10:46 Dose: Not Given Documented by: Tresiba Flextouch U- (100) 56 unit SC HS ON LICENSE OF [facility] Stop: 04/27/19 21:01 Last Admin: 03/29/19 22:48 Dose: Not Given Documented by: Ondansetron HCl (Zofran) 4 mg IV Q4H PRN PRN Reason: Nausea And Vomiting Stop: 04/27/19 11:32 Last Admin: 03/29/19 10:10 Dose: 4 mg Documented by: Senna/Docusate Sodium (Senokot-S) 2 tab PO HS KRISTINA Stop: 04/27/19 21:01 Last Admin: 03/29/19 21:47 Dose: 2 tab Documented by: Review of Systems - Review of Systems Generalized/Overall Review: Absent: Chills, Fever EENTM: Absent: Blurred Vision Respiratory: Absent: Cough, Shortness of Breath, Orthopnea Cardiac: Absent: Chest Pain, Edema, Palpitations Abdominal: Absent: Nausea, Vomiting, Abdominal Pain Genitourinary: Absent: Urgency, Frequency Musculoskeletal: Present: Joint Pain Neurological: Absent: Headache Skin: Absent: Lesions, Rash Misc: All systems neg except as marked - HER ROS is unreliable as due to her AMS Physical Examination - Exam Vital Signs: Vital Signs - Last Taken Temp 36.6 C 03/30/19 09:30 Pulse 85 03/30/19 10:46 Resp 20 03/30/19 09:30 BP 91/51 03/30/19 10:46 Pulse Ox 86 L 03/30/19 09:38 O2 Oxygen Delivery Method Room Air Constitutional: Present: Alert - AAO x 1, Cooperative, Morbidly obese ENT Exam: Present: hearing grossly normal Eye Exam: bilateral eye: normal inspection, PERRL, EOMI Neck: Present: supple. Absent: lymphadenopathy (R), lymphadenopathy (L) Respiratory: Present: decreased breath sounds, No rales, No wheezing Cardiovascular/Chest: Present: regular rate, rhythm, no JVD, no murmur Abdomen: Present: Normal bowel sounds, soft, nontender, nondistended Extremity: Present: no calf tenderness, pedal edema Neurologic: Present: quality assurance coordinator II-XII nml as tested, no motor/sensory deficits - grossly, alert - AAO x 1 - Results and Findings: Lab/Microbiology results last 24 hrs: Abnormal/Pending Laboratory Last 24 HRS 03/30/19 03/30/19 10:40 07:45 pO2 78.8 L Base Excess -3.9 L ABG pH 7.32 L Potassium 4.9 H Anion Gap 14.5 H BUN 45 H Creatinine 3.01 H D Est GFR (Non-Af Amer) 16 L D Random Glucose 133 H ALT 7 L Total Protein 6.1 L Albumin 3.0 L - Assessments/Findings (1) Altered mental status Diagnosis(s): likely due to metabolic encephalopathy (unlikely uremic encephalopathy) due to narcotic pain medication- she got 4 doses of percoset yesterday , last one was 4:15 p.m., she had MS contin 15 mg -yesterday at 9:35 a.m.- and with her ARF and her h/o DEL ANGEL with liver cirrhosis, her narcotics might be lingering longer in her system. Her ABG is showing acute respiratory acidosis- likely central- narcotic? pulmonary?. her narcotic pain meds are on hold. continue with Tylenol not exceed 2 grams /day due to her h/o liver cirrhosis from DEL ANGEL. will order for incentive spirometry q 1 hour. if she does get out of this soon, will order for CTS of the head w/o contrast or MRI to rule out any CLINICAL COORDINATOR etiology- tranxenamic acid being a antifibrinolytic can cause CVA/cerebral edema. Problem: Acute Qualifiers: Altered mental status type: transient alteration of awareness Qualified Code(s): R40.4 - Transient alteration of awareness (2) Acute renal insufficiency Diagnosis(s): Acute renal insufficiency is still likely prerenal. She did not get NSAIDS. She did get tranxenamic acid which can cause ureteral obstruction ( postrenal) and will get a [place]. UA is pending. Will increase her NSS to 250 ml/hour. will hold her diuretic and NIKKY I for now. Problem: Acute (3) Status post total left knee replacement Problem: Acute (4) Anxiety and depression Problem: Chronic (5) CAD (coronary artery disease) Problem: Chronic Qualifiers: (6) Diabetes mellitus Problem: Chronic Qualifiers: Diabetes mellitus type: type 2 (7) Hyperlipidemia Problem: Chronic Qualifiers: (8) Hypothyroidism Problem: Chronic Qualifiers: (9) Rheumatoid arthritis Problem: Chronic Qualifiers: Rheumatoid arthritis location: unspecified site Rheumatoid factor presence: with rheumatoid factor Qualified Code(s): M05.9 - Rheumatoid arthritis with rheumatoid factor, unspecified
[2019-03-30 13:35] LABS: Anion Gap 12.3 mmol/L (6.8-13.8); Calcium * 8.6 mg/dL (7.9-10.9); Carbon Dioxide 30.5 mmol/L (24-32.6); Potassium 4.8 mmol/L (3.4-4.6)
[2019-03-30] MEDS: ACETAMINOPHEN 500 MG TABLET PO PRN (15:51)
[2019-03-30 16:37] LABS: Urine Bilirubin 3 mg/dl (NEGATIVE); Urine Blood 250 /ul (NEGATIVE); Urine Ketone 5 mg/dL (NEGATIVE); Urine Nitrite Negative (NEGATIVE); Urine Protein 30 mg/dL (NEGATIVE); Urine Specific Gravity >=1.030 SP.GR. (1.005-1.010); Urine Urobilinogen Normal (NORMAL)
[2019-03-30] MEDS: NORMAL SALINE 1,000 ML IV PRN ×2 (16:44→19:16)
[2019-03-30 16:49] LABS: Urine Appearance Slightly Cloudy (CLEAR); Urine Color Amber
[2019-03-30 16:50] LABS: Urine Bacteria 2+; Urine RBC >50 /hpf (0-5)
[2019-03-30] MEDS: SENNOSIDES/DOCUSATE SODIUM 1 TAB TABLET PO SCH (21:50)
[2019-03-31] MEDS: NORMAL SALINE 1,000 ML IV PRN ×4 (00:51→19:34)
[2019-03-31 07:09] LABS: Anion Gap 12.3 mmol/L (6.8-13.8); BUN/Creatinine Ratio 19.2 (9.0-21.6); Calcium * 8.1 mg/dL (7.9-10.9); Carbon Dioxide 26.6 mmol/L (24-32.6); Estimated Creat Clear 14.8; Potassium 4.9 mmol/L (3.4-4.6)
--- NOTE | 2019-03-31 08:09 | PN ---
Subjective - Date and Time Seen Date: 03/31/19 Time: 08:03 Subjective Narrative: Patient is in room lying in bed. She is accompanied by her daughters at this time. They are anxious because Shaan still has not perked up yet. With questioning Deborah lion she cannot tell me where she is at this time. She does respond to me and recognizes me by name. She does respond to request for exam for me. She is denying shortness of breath or chest pain. Objective Objective Narrative: Patient is able to smile and puff of her cheeks for me. She is able to raise her eyebrows. Patient is able to station inspector my hands with both of her hands. Patient is able to plantarflex and dorsiflex her feet bilaterally. She has 1+ edema in her hands as well as left lower leg. She is satting at 100% on 2 L. She is drowsy but will awaken with shaking her but does fall asleep quickly again. - Vitals Vitals: Last Vital Signs Temp 37.1 C 03/31/19 06:23 Pulse 88 03/31/19 06:23 Resp 9 L 03/31/19 06:23 BP 111/63 03/31/19 06:23 Pulse Ox 100 03/31/19 06:23 - Abnormal Lab Findings Abnormal Lab Findings: Abnormal Lab Results 03/30/19 03/30/19 03/30/19 Range/Units 07:45 10:40 13:25 pO2 78.8 L (83.0-108.0) mmHg Base Excess -3.9 L (-2.0-3.0) mmol/L ABG pH 7.32 L (7.35-7.45) Potassium 4.9 H 4.8 H (3.4-4.6) mmol/L Anion Gap 14.5 H (6.8-13.8) mmol/L BUN 45 H 47 H (3-23) mg/dL Creatinine 3.01 H D 3.35 H (0.4-1.4) mg/dL Est GFR (Non-Af Amer) 16 L D 14 L (60-130) mL/min Random Glucose 133 H 149 H (70-110) mg/dL ALT 7 L (19-67) U/L Total Protein 6.1 L (6.2-8.2) gm/dL Albumin 3.0 L (3.4-5.0) gm/dl Urine Protein (NEGATIVE) mg/dL Urine Blood (NEGATIVE) /ul Urine Bilirubin (NEGATIVE) mg/dl Prot Sulfosalicylic Acd (0) mg/dL Ur Leukocyte Esterase (NEGATIVE) /ul Urine RBC (0-5) /hpf Urine WBC (0-5) /hpf Urine Bacteria (NONE) 03/30/19 03/31/19 Range/Units 16:15 06:55 pO2 (83.0-108.0) mmHg Base Excess (-2.0-3.0) mmol/L ABG pH (7.35-7.45) Potassium 4.9 H (3.4-4.6) mmol/L Anion Gap (6.8-13.8) mmol/L BUN 48 H (3-23) mg/dL Creatinine 2.50 H D (0.4-1.4) mg/dL Est GFR (Non-Af Amer) 20 L D (60-130) mL/min Random Glucose (70-110) mg/dL ALT (19-67) U/L Total Protein (6.2-8.2) gm/dL Albumin (3.4-5.0) gm/dl Urine Protein 30 H (NEGATIVE) mg/dL Urine Blood 250 H (NEGATIVE) /ul Urine Bilirubin 3 H (NEGATIVE) mg/dl Prot Sulfosalicylic Acd 2+ H (0) mg/dL Ur Leukocyte Esterase 75 H (NEGATIVE) /ul Urine RBC >50 H (0-5) /hpf Urine WBC 5-10 H (0-5) /hpf Urine Bacteria 2+ H (NONE) - Exam Constitutional: Present: No distress Cauti Physician Documentation - Urinary Catheter Management Urethral (Jacobs) Urethral Indwelling: Yes Date of Insertion: 03/28/19 Time of Insertion: 10:05 Assessment/Plan - Problems/Diagnosis (1) Diabetes mellitus Problem: Chronic Qualifiers: Diabetes mellitus type: type 2 (2) Hyperlipidemia Problem: Chronic Qualifiers: (3) CRF (chronic renal failure) Problem: Chronic Qualifiers: Narrative: Patient's creatinine has improved to 2.5 (4) Status post total left knee replacement Problem: Acute Narrative: Patient does need to get up to a chair today. Anticoagulation. At this time she is not made significant improvement for planned surgery on the other knee. (5) Altered mental status Problem: Acute Qualifiers: Altered mental status type: transient alteration of awareness Qualified Code(s): R40.4 - Transient alteration of awareness Narrative: Discussed with Dr. Rodríguez. He has yet to see her this morning. Certainly this could be medication related still. Await his recommendations.
--- NOTE | 2019-03-31 08:15 | PN ---
Subjective - Date and Time Seen Date: 03/31/19 Time: 08:04 Subjective Narrative: patient is drowsy and sleepy. she woked up when I started examining her and recognized and smiled at me. she uttered Dr. Rodríguez when I asked her who I was. she did not answer to place and time . T max 37.9 Objective - Review of Systems Generalized/Overall Review: Reports: Chills Misc: All systems neg except as marked - was not able to do ROS due to her AMS. - Vitals Vitals: Last Vital Signs Temp 37.1 C 03/31/19 06:23 Pulse 88 03/31/19 06:23 Resp 9 L 03/31/19 06:23 BP 111/63 03/31/19 06:23 Pulse Ox 100 03/31/19 06:23 - Abnormal Lab Findings Abnormal Lab Findings: Abnormal Lab Results 03/30/19 03/30/19 03/30/19 Range/Units 07:45 10:40 13:25 pO2 78.8 L (83.0-108.0) mmHg Base Excess -3.9 L (-2.0-3.0) mmol/L ABG pH 7.32 L (7.35-7.45) Potassium 4.9 H 4.8 H (3.4-4.6) mmol/L Anion Gap 14.5 H (6.8-13.8) mmol/L BUN 45 H 47 H (3-23) mg/dL Creatinine 3.01 H D 3.35 H (0.4-1.4) mg/dL Est GFR (Non-Af Amer) 16 L D 14 L (60-130) mL/min Random Glucose 133 H 149 H (70-110) mg/dL ALT 7 L (19-67) U/L Total Protein 6.1 L (6.2-8.2) gm/dL Albumin 3.0 L (3.4-5.0) gm/dl Urine Protein (NEGATIVE) mg/dL Urine Blood (NEGATIVE) /ul Urine Bilirubin (NEGATIVE) mg/dl Prot Sulfosalicylic Acd (0) mg/dL Ur Leukocyte Esterase (NEGATIVE) /ul Urine RBC (0-5) /hpf Urine WBC (0-5) /hpf Urine Bacteria (NONE) 01/22/20 01/23/20 Range/Units 16:15 06:55 pO2 (83.0-108.0) mmHg Base Excess (-2.0-3.0) mmol/L ABG pH (7.35-7.45) Potassium 4.9 H (3.4-4.6) mmol/L Anion Gap (6.8-13.8) mmol/L BUN 48 H (3-23) mg/dL Creatinine 2.50 H D (0.4-1.4) mg/dL Est GFR (Non-Af Amer) 20 L D (60-130) mL/min Random Glucose (70-110) mg/dL ALT (19-67) U/L Total Protein (6.2-8.2) gm/dL Albumin (3.4-5.0) gm/dl Urine Protein 30 H (NEGATIVE) mg/dL Urine Blood 250 H (NEGATIVE) /ul Urine Bilirubin 3 H (NEGATIVE) mg/dl Prot Sulfosalicylic Acd 2+ H (0) mg/dL Ur Leukocyte Esterase 75 H (NEGATIVE) /ul Urine RBC >50 H (0-5) /hpf Urine WBC 5-10 H (0-5) /hpf Urine Bacteria 2+ H (NONE) - Exam Constitutional: Present: Alert - AAO x 1, Other - sleepy and drowsy ENT Exam: Present: hearing grossly normal Neck: Present: supple. Absent: lymphadenopathy (R), lymphadenopathy (L) Respiratory: Present: decreased breath sounds, No rales, No wheezing Cardiovascular/Chest: Present: regular rate, rhythm, no JVD, no murmur Abdomen: Present: Normal bowel sounds, soft, nontender, nondistended Extremity: Present: no pedal edema, no calf tenderness Neurologic: Present: no motor/sensory deficits - grossly Cauti Physician Documentation - Urinary Catheter Management Urethral (Jacobs) Urethral Indwelling: Yes Date of Insertion: 03/28/19 Time of Insertion: 10:05 Assessment/Plan - Problems/Diagnosis (1) Acute kidney injury Problem: Acute Narrative: Cr has improved to 2.5 from high of 3.5. Likely prerenal vs renal. [place] shows no hydronephrosis. will continue with IVF with close monitoring for overload. Her duloxetine and allopurinol dosages have been decreased due to her reduced Cr clearnace. Cr though has improved. will continue with IVF. (2) Altered mental status Problem: Acute Qualifiers: Altered mental status type: transient alteration of awareness Qualified Code(s): R40.4 - Transient alteration of awareness Narrative: likely due to Delirium from metabolic(drug), environmental, emotional, sleep- wake cycle disturbances. Her UA shows leukocyte esterace, bacteuria, pyuria, RBC. Her duloxetine dose was cut in half. Discussed case with the whole family. This could still be due to reduced clearance and metabolism of her pain medications due to her CHELSY and liver cirrhosis from DEL ANGEL. No focal deficit on neuro exam. if her mentation does not improved with improving kidney function will do CTS or MRI of the brain. (3) UTI (urinary tract infection) Problem: Suspected Qualifiers: Urinary tract infection type: acute cystitis Hematuria presence: with hematuria Qualified Code(s): N30.01 - Acute cystitis with hematuria Narrative: will send for UCS. will start antibiotics-IV cipro. (4) Hyperkalemia Problem: Acute Narrative: due to CHELSY likely ATN. low K diet. will monitor (5) Liver cirrhosis secondary to DEL ANGEL Problem: Chronic (6) Status post total left knee replacement Problem: Acute (7) Anxiety and depression Problem: Chronic (8) CAD (coronary artery disease) Problem: Chronic Qualifiers: (9) Diabetes mellitus Problem: Chronic Qualifiers: Diabetes mellitus type: type 2 (10) Hyperlipidemia Problem: Chronic Qualifiers: (11) Hypothyroidism Problem: Chronic Qualifiers: (12) Rheumatoid arthritis Problem: Chronic Qualifiers: Rheumatoid arthritis location: unspecified site Rheumatoid factor presence: with rheumatoid factor Qualified Code(s): M05.9 - Rheumatoid arthritis with rheumatoid factor, unspecified
[2019-03-31] MEDS: INSULIN LISPRO 100 UNITS/ML VIAL SC SCH ×4 (09:15→20:37)
[2019-03-31] MEDS: CIPROFLOXACIN IN 5 % DEXTROSE 200 MG/100 ML BAG IV SCH ×2 (10:09→20:18)
[2019-03-31] MEDS: DULoxetine HCL 20 MG CAPSULE.SA PO SCH (10:16)
[2019-03-31] MEDS: CARVEDILOL 6.25 MG TABLET PO SCH ×2 (10:16→20:25)
[2019-03-31] MEDS: ALLOPURINOL 100 MG TABLET PO SCH (10:16)
[2019-03-31] MEDS: LEVOTHYROXINE SODIUM 88 MCG TABLET PO SCH (10:16)
[2019-03-31 12:01] LABS: Urine Bilirubin 1 mg/dl (NEGATIVE); Urine Blood 50 /ul (NEGATIVE); Urine Ketone Negative (NEGATIVE); Urine Nitrite Negative (NEGATIVE); Urine Protein 15 mg/dL (NEGATIVE); Urine Urobilinogen Normal (NORMAL); Urine pH 5.5 pH (5.0-7.0)
[2019-03-31] MEDS: ENOXAPARIN SODIUM 40 MG/0.4 ML SYRG SC SCH (12:02)
[2019-03-31 12:34] LABS: Urine Appearance Clear (CLEAR); Urine Bacteria TRACE; Urine Color Yellow; Urine RBC TRACE /hpf (0-5)
[2019-03-31] MEDS: ACETAMINOPHEN 500 MG TABLET PO PRN (13:28)
[2019-03-31] MEDS: SENNOSIDES/DOCUSATE SODIUM 1 TAB TABLET PO SCH (20:25)
[2019-04-01] MEDS: NORMAL SALINE 1,000 ML IV PRN ×3 (03:17→23:17)
[2019-04-01 06:45] LABS: Hematocrit 25.6 % (37.0-47.0); Hemoglobin 8.3 gm/dL (12.5-16.0); Mean Cell Volume 102.8 fl (78-100); Mean Corpuscular Hemoglobin 33.3 pg (27-31); Mean Corpuscular Hgb Conc 32.4 g/dl (32-36); Mean Platelet Volume 9.1 fl (8-12.5); Neutrophil # 6.4 K/mm3 (1.3-6.0); Neutrophil % 75.5 % (42-75.0); Platelet Count 176 K/mm3 (150-450); Red Blood Count 2.49 M/mm3 (4.2-5.4); White Blood Count 8.5 K/mm3 (4.0-10.5)
[2019-04-01 07:03] LABS: Albumin * 2.2 gm/dl (3.4-5.0); Anion Gap 11.9 mmol/L (6.8-13.8); BUN/Creatinine Ratio 24.8 (9.0-21.6); Bilirubin, Total 0.5 mg/dL (0.0-1.1); Ca. Corrected For Albumin 9.3 mg/dL (8.4-10.2); Calcium * 8.2 mg/dL (7.9-10.9); Carbon Dioxide 26.7 mmol/L (24-32.6); Potassium 4.6 mmol/L (3.4-4.6); Total Protein 5.4 gm/dL (6.2-8.2)
--- NOTE | 2019-04-01 08:25 | PN ---
Subjective - Date and Time Seen Date: 04/01/19 Time: 08:12 Subjective Narrative: Patient is awake and alert and tracking better. She stil did not answer time and place but repaeated the question. She is eating breakfast and appetite seems good. had good urine output-1800 ml. Objective - Review of Systems Misc: All systems neg except as marked - unreliable due to AMS - Vitals Vitals: Last Vital Signs Temp 37.2 C 04/01/19 06:42 Pulse 84 04/01/19 06:42 Resp 16 04/01/19 06:42 BP 135/59 04/01/19 06:42 Pulse Ox 99 04/01/19 06:42 - Abnormal Lab Findings Abnormal Lab Findings: Abnormal Lab Results 03/31/19 04/01/19 04/01/19 Range/Units 10:33 06:41 06:41 RBC 2.49 L (4.2-5.4) M/mm3 Hgb 8.3 L (12.5-16.0) gm/dL Hct 25.6 L (37.0-47.0) % MCV 102.8 H (78-100) fl MCH 33.3 H (27-31) pg Immature Gran % (Auto) 0.70 H (0.001-0.429) % Immature Gran # (Auto) 0.06 H (0.000-0.0310) K/mm3 Neutrophils % 75.5 H (42-75.0) % Lymphocytes % 13.8 L (20-51) % Neutrophils # 6.4 H (1.3-6.0) K/mm3 Lymphocytes # 1.18 L (1.5-3.5) k/mm3 BUN 37 H (3-23) mg/dL Creatinine 1.49 H D (0.4-1.4) mg/dL Est GFR (Non-Af Amer) 37 L D (60-130) mL/min BUN/Creatinine Ratio 24.8 H (9.0-21.6) Random Glucose 112 H (70-110) mg/dL AST 69 H (0-48) U/L ALT 15 L (19-67) U/L Total Protein 5.4 L (6.2-8.2) gm/dL Albumin 2.2 L (3.4-5.0) gm/dl Urine Protein 15 H (NEGATIVE) mg/dL Urine Blood 50 H (NEGATIVE) /ul Urine Bilirubin 1 H (NEGATIVE) mg/dl Ur Leukocyte Esterase 75 H (NEGATIVE) /ul Urine WBC 5-10 H (0-5) /hpf - Exam Constitutional: Present: Alert, Morbidly obese ENT Exam: Present: hearing grossly normal Neck: Present: supple Respiratory: Present: decreased breath sounds, No rales, No wheezing Cardiovascular/Chest: Present: regular rate, rhythm, no JVD, no murmur Abdomen: Present: Normal bowel sounds, soft, nontender, nondistended Extremity: Present: no calf tenderness, pedal edema Neurologic: Present: no motor/sensory deficits, alert - AAO x 1 Cauti Physician Documentation - Urinary Catheter Management Urethral (Jacobs) Urethral Indwelling: Yes Date of Insertion: 03/28/19 Time of Insertion: 10:05 Assessment/Plan Plan Narrative: Shaan is a 73-year-old white female who was admitted for bilateral total knee replacement. She had her left total knee replacement but her right total knee replacement was postponed due to acute kidney injury and altered mentation. Her acute kidney injury is likely renal/prerenal from NSAID. Her change in mentation most likely is due to delirium from toxic metabolic encephalopathy, environmental, emotional, and sleep wake cycle pattern changes. She she also had fever of 38.6 yesterday. Urinalysis suspicious for urinary tract infection and IV Cipro was started. We will await culture of her urine . Her urine output is significantly improved with concomitant improvement also of her mentation. We will decrease her IV fluids to 100 mL/h and if her oral p.o. fluid intake increases we will discontinue her IV fluids. We have continued to hold her narcotic pain medications which likely is the main cause of her altered mental status from reduced hepatic metabolism and reduced renal clearance of the drug. Addendum: Her urine culture showed no growth but she did have prophylactic IV antibiotics for her left total knee replacement which could have suppressed the organisms. We will do a follow-up chest x-ray for her fever and also because she does have a history of CHF and we did give her IV fluids aggressively. I will likely be starting back on her diuretic today. She does also have anemia, macrocytic due to acute blood loss anemia versus dilutional? She was 12 on 03/24/19, 11 on POD # 1 (03/29/19). Will monitor closely and may need to give BT due to her h/o CAD . - Problems/Diagnosis (1) Acute kidney injury Problem: Acute (2) Altered mental status Problem: Acute Qualifiers: Altered mental status type: transient alteration of awareness Qualified Code(s): R40.4 - Transient alteration of awareness (3) UTI (urinary tract infection) Problem: Suspected Qualifiers: Urinary tract infection type: acute cystitis Hematuria presence: with hematuria Qualified Code(s): N30.01 - Acute cystitis with hematuria (4) Hyperkalemia Problem: Resolved (5) Liver cirrhosis secondary to DEL ANGEL Problem: Chronic (6) Status post total left knee replacement Problem: Acute (7) Anxiety and depression Problem: Chronic (8) CAD (coronary artery disease) Problem: Chronic Qualifiers: (9) Diabetes mellitus Problem: Chronic Qualifiers: Diabetes mellitus type: type 2 (10) Hyperlipidemia Problem: Chronic Qualifiers: (11) Hypothyroidism Problem: Chronic Qualifiers: (12) Rheumatoid arthritis Problem: Chronic Qualifiers: Rheumatoid arthritis location: unspecified site Rheumatoid factor presence: with rheumatoid factor Qualified Code(s): M05.9 - Rheumatoid arthritis with rheumatoid factor, unspecified (13) Anemia Problem: Acute Qualifiers: Anemia type: unspecified type Qualified Code(s): D64.9 - Anemia, unspecified
[2019-04-01] MEDS: CIPROFLOXACIN IN 5 % DEXTROSE 200 MG/100 ML BAG IV SCH ×2 (10:54→20:06)
[2019-04-01] MEDS: ENOXAPARIN SODIUM 40 MG/0.4 ML SYRG SC SCH (10:56)
[2019-04-01] MEDS: CARVEDILOL 6.25 MG TABLET PO SCH ×2 (10:56→20:07)
[2019-04-01] MEDS: DULoxetine HCL 20 MG CAPSULE.SA PO SCH (10:56)
[2019-04-01] MEDS: ALLOPURINOL 100 MG TABLET PO SCH (10:56)
[2019-04-01] MEDS: LISINOPRIL 5 MG TABLET PO SCH (10:57)
[2019-04-01] MEDS: FUROSEMIDE 40 MG TABLET PO SCH (10:57)
[2019-04-01] MEDS: LEVOTHYROXINE SODIUM 88 MCG TABLET PO SCH (10:57)
--- NOTE | 2019-04-01 12:30 | PN ---
Subjective - Date and Time Seen Date: 04/01/19 Time: 12:26 Subjective Narrative: Subjective: More alert today. Up in chair feeding herself. She is alert to person and place and reports she had a knee replacement. Limited mobility with PT at this time. Job lifted to chair. Pain medicines being held. Catheter is in place tolerating by mouth intake. Denies any nausea or vomiting. Denies calf pain. Physical exam: Alert and oriented to person, place and time Left lower extremity: Palpable dorsalis pedis pulse. Sensation grossly intact to light touch. Dressings clean and dry. Able to flex and extend ankle and toes. No excessive drainage. Calf and thigh are soft and nontender. Assessment: Postop day 4 status post left total knee arthroplasty. Plan: Due to the need for pain control, post-operative limited mobility, protection of the surgical site and joint, monitoring of the wound, and the management of chronic medical conditions, she requires continued inpatient care. Continue with physical and occupational therapy weightbearing as tolerated. Continue with anticoagulation. Her primary care physician is going to assist with her medical issues. Continue to hold narcotics as I feel most of her confusion/sedation are narcotic related. Out of bed TID. Will likely need SNF once stable after DC. Objective - Vitals Vitals: Last Vital Signs Temp 36.7 C 04/01/19 10:45 Pulse 77 04/01/19 10:57 Resp 20 04/01/19 10:45 BP 140/65 04/01/19 10:57 Pulse Ox 98 04/01/19 10:45 - Abnormal Lab Findings Abnormal Lab Findings: Abnormal Lab Results 03/31/19 04/01/19 04/01/19 Range/Units 10:33 06:41 06:41 RBC 2.49 L (4.2-5.4) M/mm3 Hgb 8.3 L (12.5-16.0) gm/dL Hct 25.6 L (37.0-47.0) % MCV 102.8 H (78-100) fl MCH 33.3 H (27-31) pg Immature Gran % (Auto) 0.70 H (0.001-0.429) % Immature Gran # (Auto) 0.06 H (0.000-0.0310) K/mm3 Neutrophils % 75.5 H (42-75.0) % Lymphocytes % 13.8 L (20-51) % Neutrophils # 6.4 H (1.3-6.0) K/mm3 Lymphocytes # 1.18 L (1.5-3.5) k/mm3 BUN 37 H (3-23) mg/dL Creatinine 1.49 H D (0.4-1.4) mg/dL Est GFR (Non-Af Amer) 37 L D (60-130) mL/min BUN/Creatinine Ratio 24.8 H (9.0-21.6) Random Glucose 112 H (70-110) mg/dL AST 69 H (0-48) U/L ALT 15 L (19-67) U/L Total Protein 5.4 L (6.2-8.2) gm/dL Albumin 2.2 L (3.4-5.0) gm/dl Urine Protein 15 H (NEGATIVE) mg/dL Urine Blood 50 H (NEGATIVE) /ul Urine Bilirubin 1 H (NEGATIVE) mg/dl Ur Leukocyte Esterase 75 H (NEGATIVE) /ul Urine WBC 5-10 H (0-5) /hpf Cauti Physician Documentation - Urinary Catheter Management Urethral (Jacobs) Urethral Indwelling: Yes Date of Insertion: 03/28/19 Time of Insertion: 10:05 Assessment/Plan - Problems/Diagnosis (1) Status post total left knee replacement Problem: Acute (2) Anxiety and depression Problem: Chronic (3) Asthma Problem: Chronic Qualifiers: (4) CAD (coronary artery disease) Problem: Chronic Qualifiers: (5) CHF (congestive heart failure) Problem: Chronic Qualifiers: (6) CRF (chronic renal failure) Problem: Chronic Qualifiers: (7) Diabetes mellitus Problem: Chronic Qualifiers: Diabetes mellitus type: type 2 (8) Hyperlipidemia Problem: Chronic Qualifiers: (9) Hypothyroidism Problem: Chronic Qualifiers: (10) МАРИЯ (obstructive sleep apnea) Problem: Chronic
[2019-04-01] MEDS: INSULIN LISPRO 100 UNITS/ML VIAL SC SCH ×4 (13:23→20:10)
[2019-04-01] MEDS: SENNOSIDES/DOCUSATE SODIUM 1 TAB TABLET PO SCH (20:07)
[2019-04-01] MEDS ORDERED: INSULIN DEGLUDEC 20 UNIT SC SCH (21:00)
[2019-04-02 06:00] LABS: Hematocrit 29.3 % (37.0-47.0); Hemoglobin 9.7 gm/dL (12.5-16.0); Mean Cell Volume 101.7 fl (78-100); Mean Corpuscular Hemoglobin 33.7 pg (27-31); Mean Corpuscular Hgb Conc 33.1 g/dl (32-36); Mean Platelet Volume 8.8 fl (8-12.5); Neutrophil # 6.6 K/mm3 (1.3-6.0); Neutrophil % 73.4 % (42-75.0); Platelet Count 195 K/mm3 (150-450); Red Blood Count 2.88 M/mm3 (4.2-5.4); Red Cell Distribution Width 12.9 % (11.5-14.0)
[2019-04-02 06:05] LABS: Anion Gap 9.4 mmol/L (6.8-13.8); BUN/Creatinine Ratio 26.1 (9.0-21.6); Calcium * 9.1 mg/dL (7.9-10.9); Estimated Creat Clear 33.3; Potassium 4.4 mmol/L (3.4-4.6)
[2019-04-02] MEDS: INSULIN LISPRO 100 UNITS/ML VIAL SC SCH ×4 (06:40→20:57)
--- NOTE | 2019-04-02 07:56 | PN ---
Subjective - Date and Time Seen Date: 04/02/19 Time: 07:52 Subjective Narrative: Upon going in room patient is sleeping. She was easily awoken and recognized me immediately. She responds to questions appropriately. She reports she feels much better and oriented. She has no specific complaints. She is wanting to work with therapy today. Objective Objective Narrative: Patient is alert and oriented at this time. She is in no distress. Examination of her left knee reports incision approximated well with pernio dressing intact. There is no drainage or bleeding. Her calf is supple. Knee range of motion is 5 to 30 degrees with discomfort. Reviewing her labs her creatinine has improved to 1.11. Her hemoglobin is improved to 9.7 from 8.3 yesterday. - Vitals Vitals: Last Vital Signs Temp 36.9 C 04/02/19 07:00 Pulse 79 04/02/19 07:00 Resp 20 04/02/19 07:00 BP 170/73 H 04/02/19 07:00 Pulse Ox 94 04/02/19 07:00 - Abnormal Lab Findings Abnormal Lab Findings: Abnormal Lab Results 04/02/19 04/02/19 Range/Units 05:55 05:55 RBC 2.88 L (4.2-5.4) M/mm3 Hgb 9.7 L (12.5-16.0) gm/dL Hct 29.3 L (37.0-47.0) % MCV 101.7 H (78-100) fl MCH 33.7 H (27-31) pg Immature Gran % (Auto) 0.90 H (0.001-0.429) % Immature Gran # (Auto) 0.08 H (0.000-0.0310) K/mm3 Lymphocytes % 13.9 L (20-51) % Monocytes % 9.3 H (0.0-9) % Neutrophils # 6.6 H (1.3-6.0) K/mm3 Lymphocytes # 1.24 L (1.5-3.5) k/mm3 BUN 29 H (3-23) mg/dL Est GFR (Non-Af Amer) 51 L D (60-130) mL/min BUN/Creatinine Ratio 26.1 H (9.0-21.6) Random Glucose 134 H (70-110) mg/dL - Exam Constitutional: Present: Alert, Cooperative, No distress Cauti Physician Documentation - Urinary Catheter Management Urethral (Jacobs) Urethral Indwelling: Yes Date of Insertion: 03/28/19 Time of Insertion: 10:05 Assessment/Plan - Problems/Diagnosis (1) Diabetes mellitus Problem: Chronic Qualifiers: Diabetes mellitus type: type 2 (2) Hyperlipidemia Problem: Chronic Qualifiers: (3) CRF (chronic renal failure) Problem: Chronic Qualifiers: (4) Status post total left knee replacement Problem: Acute Narrative: Discussed with patient she is behind on her therapy goals as her confusion limited her activity level. Instructed her she needs to work with therapy. She may need some skilled care if she is slow to progress. Continue anticoagulation and pain control. (5) Altered mental status Problem: Acute Qualifiers: Altered mental status type: transient alteration of awareness Qualified Code(s): R40.4 - Transient alteration of awareness Narrative: Mental status has improved as medications are clearing her system. (6) Acute renal injury Problem: Acute Narrative: Patient's creatinine has returned to normal.
[2019-04-02] MEDS: ONDANSETRON HCL/PF 2 MG/ML VIAL IV PRN (08:57)
[2019-04-02] MEDS: CIPROFLOXACIN IN 5 % DEXTROSE 200 MG/100 ML BAG IV SCH ×2 (08:59→20:54)
--- NOTE | 2019-04-02 08:59 | PN ---
Subjective - Date and Time Seen Date: 04/02/19 Time: 08:52 Subjective Narrative: Patient is working with PT . she feels nauseated. Objective - Review of Systems Generalized/Overall Review: Reports: Weakness. Denies: Chills, Fever EENTM: Denies: Blurred Vision Respiratory: Denies: Cough, Shortness of Breath, Orthopnea Cardiac: Reports: Edema. Denies: Chest Pain, Palpitations Abdominal: Denies: Vomiting, Abdominal Pain Genitourinary Symptoms: Denies: Urgency, Frequency Musculoskeletal Complaints: Reports: Joint Pain Neurological: Denies: Headache Skin: Denies: Lesions, Rash Misc: All systems neg except as marked - Vitals Vitals: Last Vital Signs Temp 36.9 C 04/02/19 07:00 Pulse 79 04/02/19 07:00 Resp 20 04/02/19 07:00 BP 170/73 H 04/02/19 07:00 Pulse Ox 94 04/02/19 07:00 - Abnormal Lab Findings Abnormal Lab Findings: Abnormal Lab Results 04/02/19 04/02/19 Range/Units 05:55 05:55 RBC 2.88 L (4.2-5.4) M/mm3 Hgb 9.7 L (12.5-16.0) gm/dL Hct 29.3 L (37.0-47.0) % MCV 101.7 H (78-100) fl MCH 33.7 H (27-31) pg Immature Gran % (Auto) 0.90 H (0.001-0.429) % Immature Gran # (Auto) 0.08 H (0.000-0.0310) K/mm3 Lymphocytes % 13.9 L (20-51) % Monocytes % 9.3 H (0.0-9) % Neutrophils # 6.6 H (1.3-6.0) K/mm3 Lymphocytes # 1.24 L (1.5-3.5) k/mm3 BUN 29 H (3-23) mg/dL Est GFR (Non-Af Amer) 51 L D (60-130) mL/min BUN/Creatinine Ratio 26.1 H (9.0-21.6) Random Glucose 134 H (70-110) mg/dL - Exam Constitutional: Present: Alert - AAO x 2, Obese ENT Exam: Present: hearing grossly normal Neck: Present: supple. Absent: lymphadenopathy (R) Respiratory: Present: decreased breath sounds, No rales, No wheezing Cardiovascular/Chest: Present: regular rate, rhythm, no JVD, no murmur Abdomen: Present: Normal bowel sounds, soft, nontender, nondistended Extremity: Present: no calf tenderness, pedal edema Cauti Physician Documentation - Urinary Catheter Management Urethral (Jacobs) Urethral Indwelling: Yes Date of Insertion: 03/28/19 Time of Insertion: 10:05 Assessment/Plan Plan Narrative: Shaan is more awake alert oriented x 2 today. Her mentation is significantly improved with improvement of her kidney function. Her creatinine is down to 1.1. She is working with physical therapy. Her hemoglobin is up to 9.7 from 8.3. We will continue to monitor. Continue with her PT/ OT. We will discontinue her IV fluids. She is on day 3 of her ciprofloxacin. Will DC after today's dose. - Problems/Diagnosis (1) Acute kidney injury Problem: Resolved (2) Anemia Problem: Acute Qualifiers: Anemia type: unspecified type Qualified Code(s): D64.9 - Anemia, unspecified (3) Altered mental status Problem: Acute Qualifiers: Altered mental status type: transient alteration of awareness Qualified Code(s): R40.4 - Transient alteration of awareness (4) UTI (urinary tract infection) Problem: Suspected Qualifiers: Urinary tract infection type: acute cystitis Hematuria presence: with hematuria Qualified Code(s): N30.01 - Acute cystitis with hematuria (5) Hyperkalemia Problem: Resolved (6) Liver cirrhosis secondary to DEL ANGEL Problem: Chronic (7) Status post total left knee replacement Problem: Acute (8) Anxiety and depression Problem: Chronic (9) CAD (coronary artery disease) Problem: Chronic Qualifiers: (10) Diabetes mellitus Problem: Chronic Qualifiers: Diabetes mellitus type: type 2 (11) Hyperlipidemia Problem: Chronic Qualifiers: (12) Hypothyroidism Problem: Chronic Qualifiers: (13) Rheumatoid arthritis Problem: Chronic Qualifiers: Rheumatoid arthritis location: unspecified site Rheumatoid factor presence: with rheumatoid factor Qualified Code(s): M05.9 - Rheumatoid arthritis with rheumatoid factor, unspecified
[2019-04-02] MEDS: NORMAL SALINE 1,000 ML IV PRN (09:01)
[2019-04-02] MEDS: LISINOPRIL 5 MG TABLET PO SCH (09:13)
[2019-04-02] MEDS: LEVOTHYROXINE SODIUM 88 MCG TABLET PO SCH (09:13)
[2019-04-02] MEDS: CARVEDILOL 6.25 MG TABLET PO SCH ×2 (09:14→20:53)
[2019-04-02] MEDS: FUROSEMIDE 40 MG TABLET PO SCH (09:14)
[2019-04-02] MEDS: ALLOPURINOL 100 MG TABLET PO SCH (09:15)
[2019-04-02] MEDS: DULoxetine HCL 20 MG CAPSULE.SA PO SCH (09:16)
[2019-04-02] MEDS: ENOXAPARIN SODIUM 40 MG/0.4 ML SYRG SC SCH (13:38)
[2019-04-02] MEDS: ALBUTEROL SULFATE/IPRATROPIUM 3 ML NEBU IH PRN (19:56)
[2019-04-02] MEDS: ACETAMINOPHEN 500 MG TABLET PO PRN (20:13)
[2019-04-02] MEDS: SENNOSIDES/DOCUSATE SODIUM 1 TAB TABLET PO SCH (20:53)
[2019-04-03] MEDS: ACETAMINOPHEN 500 MG TABLET PO PRN ×2 (06:33→23:15)
[2019-04-03] MEDS: LEVOTHYROXINE SODIUM 88 MCG TABLET PO SCH (06:35)
[2019-04-03] MEDS: INSULIN LISPRO 100 UNITS/ML VIAL SC SCH ×4 (06:35→20:21)
--- NOTE | 2019-04-03 09:45 | PN ---
Subjective - Date and Time Seen Date: 04/03/19 Time: 09:35 Subjective Narrative: DURGA x3. worked very little with PT yesterday.will likely need NH placement for strengthening Objective - Review of Systems Generalized/Overall Review: Reports: Weakness. Denies: Chills, Fever EENTM: Denies: Blurred Vision Respiratory: Denies: Cough, Shortness of Breath, Orthopnea Cardiac: Denies: Chest Pain, Edema, Palpitations Abdominal: Denies: Nausea, Vomiting, Abdominal Pain Genitourinary Symptoms: Denies: Urgency, Frequency Musculoskeletal Complaints: Reports: Joint Pain Neurological: Denies: Headache Skin: Denies: Lesions, Rash Misc: All systems neg except as marked - Vitals Vitals: Last Vital Signs Temp 36.0 C 04/03/19 06:19 Pulse 77 04/03/19 06:19 Resp 18 04/03/19 06:19 BP 139/70 04/03/19 06:19 Pulse Ox 99 04/03/19 06:19 - Exam Constitutional: Present: Alert, Oriented x3, Cooperative, Obese ENT Exam: Present: hearing grossly normal Neck: Present: supple. Absent: lymphadenopathy (R), lymphadenopathy (L) Respiratory: Present: decreased breath sounds, No rales, No wheezing Cardiovascular/Chest: Present: regular rate, rhythm, no JVD, no murmur Abdomen: Present: Normal bowel sounds, soft, nontender, nondistended Extremity: Present: no calf tenderness, pedal edema Cauti Physician Documentation - Urinary Catheter Management Urethral (Jacobs) Urethral Indwelling: Yes Date of Insertion: 03/28/19 Time of Insertion: 10:05 Assessment/Plan Plan Narrative: Shaan is back to her baseline - mentation and kidney function thao. We will discontinue her IV Cipro. She is slow to progress with physical therapy. She will likely need senior living placement for more physical therapy/Occupational Therapy and strengthening exercises. Continue with PT/OT and DVT prophylaxis. - Problems/Diagnosis (1) Acute kidney injury Problem: Resolved (2) Anemia Problem: Acute Qualifiers: Anemia type: unspecified type Qualified Code(s): D64.9 - Anemia, unspecified (3) Altered mental status Problem: Resolved Qualifiers: Altered mental status type: transient alteration of awareness Qualified Code(s): R40.4 - Transient alteration of awareness (4) UTI (urinary tract infection) Problem: Resolved Qualifiers: Urinary tract infection type: acute cystitis Hematuria presence: with hematuria Qualified Code(s): N30.01 - Acute cystitis with hematuria (5) Hyperkalemia Problem: Resolved (6) Liver cirrhosis secondary to DEL ANGEL Problem: Chronic (7) Status post total left knee replacement Problem: Acute (8) Anxiety and depression Problem: Chronic (9) CAD (coronary artery disease) Problem: Chronic Qualifiers: (10) Diabetes mellitus Problem: Chronic Qualifiers: Diabetes mellitus type: type 2 (11) Hyperlipidemia Problem: Chronic Qualifiers: (12) Hypothyroidism Problem: Chronic Qualifiers: (13) Rheumatoid arthritis Problem: Chronic Qualifiers: Rheumatoid arthritis location: unspecified site Rheumatoid factor presence: with rheumatoid factor Qualified Code(s): M05.9 - Rheumatoid arthritis with rheumatoid factor, unspecified (14) CRF (chronic renal failure) Problem: Chronic Qualifiers: Chronic kidney disease stage: stage 3 (moderate) Qualified Code(s): N18.3 - Chronic kidney disease, stage 3 (moderate)
[2019-04-03] MEDS: ALLOPURINOL 100 MG TABLET PO SCH (09:58)
[2019-04-03] MEDS: CARVEDILOL 6.25 MG TABLET PO SCH ×2 (09:58→20:21)
[2019-04-03] MEDS: FUROSEMIDE 40 MG TABLET PO SCH (09:58)
[2019-04-03] MEDS: LISINOPRIL 5 MG TABLET PO SCH (09:59)
[2019-04-03] MEDS: CIPROFLOXACIN IN 5 % DEXTROSE 200 MG/100 ML BAG IV SCH (09:59)
[2019-04-03] MEDS: DULoxetine HCL 20 MG CAPSULE.SA PO SCH (09:59)
[2019-04-03] MEDS: ENOXAPARIN SODIUM 40 MG/0.4 ML SYRG SC SCH (10:00)
--- NOTE | 2019-04-03 12:02 | PN ---
Subjective - Date and Time Seen Date: 04/03/19 Time: 11:57 Subjective Narrative: Patient reports she is feeling good. She states her ankle was sore from her ANICETO hose getting bunched up. Knee is tolerable but feels little difficult getting up. Feels her confusion has resolved and realizes she is behind on therapy because of it. No other complaints. Objective Objective Narrative: Patient is alert and oriented at this time. Up in chair getting ready to eat lunch. She is in no distress. Examination of her left knee reports incision approximated well with pernio dressing intact. There is no drainage or bleeding. Her calf is supple. Able to PF/DF ankles. - Vitals Vitals: Last Vital Signs Temp 36.0 C 04/03/19 06:19 Pulse 76 04/03/19 09:59 Resp 18 04/03/19 06:19 BP 149/75 04/03/19 09:59 Pulse Ox 99 04/03/19 06:19 Cauti Physician Documentation - Urinary Catheter Management Urethral (Jacobs) Urethral Indwelling: Yes Date of Insertion: 03/28/19 Time of Insertion: 10:05 Date of Removal: 04/03/19 Time of Removal: 09:53 Assessment/Plan - Problems/Diagnosis (1) Diabetes mellitus Problem: Chronic Qualifiers: Diabetes mellitus type: type 2 (2) Hyperlipidemia Problem: Chronic Qualifiers: (3) CRF (chronic renal failure) Problem: Chronic Qualifiers: Chronic kidney disease stage: stage 3 (moderate) (4) Status post total left knee replacement Problem: Acute Narrative: PT, anticoagulation, pain control, set up for skilled facility for progressive therapy (5) Altered mental status Problem: Resolved Qualifiers: Altered mental status type: transient alteration of awareness Qualified Code(s): R40.4 - Transient alteration of awareness Narrative: improved (6) Acute renal injury Problem: Acute Narrative: improved
[2019-04-03] MEDS: ALBUTEROL SULFATE/IPRATROPIUM 3 ML NEBU IH PRN (14:07)
[2019-04-03] MEDS: SENNOSIDES/DOCUSATE SODIUM 1 TAB TABLET PO SCH (20:21)
[2019-04-04] MEDS: INSULIN LISPRO 100 UNITS/ML VIAL SC SCH ×2 (06:58→11:51)
[2019-04-04] MEDS: LEVOTHYROXINE SODIUM 88 MCG TABLET PO SCH (06:59)
[2019-04-04 07:55] LABS: Anion Gap 11.5 mmol/L (6.8-13.8); BUN/Creatinine Ratio 19.2 (9.0-21.6); Calcium * 9.2 mg/dL (7.9-10.9); Carbon Dioxide 32.4 mmol/L (24-32.6); Estimated Creat Clear 35.5; Potassium 3.9 mmol/L (3.4-4.6)
[2019-04-04] MEDS ORDERED: FUROSEMIDE 10 MG/ML VIAL IV SCH (09:00)
[2019-04-04] MEDS: ALLOPURINOL 100 MG TABLET PO SCH (09:09)
[2019-04-04] MEDS: CARVEDILOL 6.25 MG TABLET PO SCH (09:09)
[2019-04-04] MEDS: LISINOPRIL 5 MG TABLET PO SCH (09:09)
[2019-04-04] MEDS: FUROSEMIDE 40 MG TABLET PO SCH ×2 (09:09→09:37)
[2019-04-04] MEDS: DULoxetine HCL 20 MG CAPSULE.SA PO SCH (09:10)
[2019-04-04] MEDS: ENOXAPARIN SODIUM 40 MG/0.4 ML SYRG SC SCH (09:39)
[2019-04-04] MEDS ORDERED: FERROUS SULFATE 325 MG TABLET PO SCH (09:45)
--- NOTE | 2019-04-04 09:46 | PN ---
Subjective - Date and Time Seen Date: 04/04/19 Time: 09:41 Subjective Narrative: patient going to [facility] today. her mentation and kidney functions are back to her baseline. Objective - Review of Systems Generalized/Overall Review: Reports: Weakness. Denies: Chills, Fever EENTM: Denies: Blurred Vision Respiratory: Denies: Cough, Shortness of Breath, Orthopnea Cardiac: Denies: Chest Pain, Edema, Palpitations Abdominal: Denies: Nausea, Vomiting, Abdominal Pain Genitourinary Symptoms: Denies: Urgency, Frequency Musculoskeletal Complaints: Reports: Joint Pain Neurological: Denies: Headache Skin: Denies: Lesions, Rash Misc: All systems neg except as marked - Vitals Vitals: Last Vital Signs Temp 36.8 C 04/04/19 06:40 Pulse 73 04/04/19 09:37 Resp 20 04/04/19 06:40 BP 146/65 04/04/19 09:37 Pulse Ox 93 04/04/19 08:22 - Abnormal Lab Findings Abnormal Lab Findings: Abnormal Lab Results 04/04/19 Range/Units 07:15 Est GFR (Non-Af Amer) 55 L (60-130) mL/min Random Glucose 141 H (70-110) mg/dL - Exam Constitutional: Present: Alert, Oriented x3, Cooperative, Obese ENT Exam: Present: hearing grossly normal Neck: Absent: supple, lymphadenopathy (R), lymphadenopathy (L) Respiratory: Present: normal breath sounds, No rales, No wheezing Cardiovascular/Chest: Present: regular rate, rhythm, no JVD, no murmur Abdomen: Present: Normal bowel sounds, soft, nontender, nondistended Extremity: Present: no calf tenderness, pedal edema Cauti Physician Documentation - Urinary Catheter Management Urethral (Jacobs) Urethral Indwelling: Yes Date of Insertion: 03/28/19 Time of Insertion: 10:05 Date of Removal: 04/03/19 Time of Removal: 09:53 Assessment/Plan Plan Narrative: Shaan is s/p LTKR and postoperative developed CHELSY on CRF with AMS. Her kidney and mentation functions are back to baseline. It is OK on IM side for patient to be discharged to [facility]. - Problems/Diagnosis (1) Acute kidney injury Problem: Resolved (2) Anemia Problem: Acute Qualifiers: Anemia type: unspecified type Qualified Code(s): D64.9 - Anemia, unspecified (3) Altered mental status Problem: Resolved Qualifiers: Altered mental status type: transient alteration of awareness Qualified Code(s): R40.4 - Transient alteration of awareness (4) Hyperkalemia Problem: Resolved (5) Liver cirrhosis secondary to DEL ANGEL Problem: Chronic (6) Status post total left knee replacement Problem: Acute (7) Anxiety and depression Problem: Chronic (8) CAD (coronary artery disease) Problem: Chronic Qualifiers: (9) Diabetes mellitus Problem: Chronic Qualifiers: Diabetes mellitus type: type 2 (10) Hyperlipidemia Problem: Chronic Qualifiers: (11) Hypothyroidism Problem: Chronic Qualifiers: (12) Rheumatoid arthritis Problem: Chronic Qualifiers: Rheumatoid arthritis location: unspecified site Rheumatoid factor presence: with rheumatoid factor Qualified Code(s): M05.9 - Rheumatoid arthritis with rheumatoid factor, unspecified (13) CRF (chronic renal failure) Problem: Chronic Qualifiers: Chronic kidney disease stage: stage 3 (moderate) Qualified Code(s): N18.3 - Chronic kidney disease, stage 3 (moderate)
--- NOTE | 2019-04-04 11:22 | DS ---
(1) Status post total left knee replacement Problem: Acute (2) Anxiety and depression Problem: Chronic (3) Asthma Problem: Chronic Qualifiers: (4) CAD (coronary artery disease) Problem: Chronic Qualifiers: (5) CHF (congestive heart failure) Problem: Chronic Qualifiers: (6) CRF (chronic renal failure) Problem: Chronic Qualifiers: Chronic kidney disease stage: stage 3 (moderate) Qualified Code(s): N18.3 - Chronic kidney disease, stage 3 (moderate) (7) Diabetes mellitus Problem: Chronic Qualifiers: Diabetes mellitus type: type 2 (8) Hyperlipidemia Problem: Chronic Qualifiers: (9) Hypothyroidism Problem: Chronic Qualifiers: (10) МАРИЯ (obstructive sleep apnea) Problem: Chronic (11) 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 Bernabe was admitted to the floor after undergoing left total knee arthropla sty. Tolerated this well. Was admitted to the floor postoperatively for 24 hours of IV antibiotics, pain control, medical comanagement, and occupational and physical therapy. OT and PT were consulted to assist with activities of daily living and ambulation. Was made weightbearing as tolerated with range of motion as tolerated. She had noted post-operative sedation and altered mental status that was negative for acute events and resolved after stopping all narcotics. She had acute on chronic renal insuffiency and IM assisted with medical care. Was resumed on home diet and medications. Had a Jacobs catheter inserted and the operating room which was kept in for a period of time post-op to monitor urine output. A drain was placed intraoperatively into the knee which was discontinued on postoperative day 1. Lovenox SCD and ANICETO hose were utilized for DVT prophylaxis. Vital signs remained stable to the hospital course although she did have some mild hypoxemia which responded to low flow nasal oxygen. Labs were obtained which showed a final hemoglobin of 9.7 grams. Pre-op hemoglobin was 12gm. The plan is to treat this with iron and follow clinically. BMP was reviewed and was stable after having a bump in her renal markers. Physical examination throughout the hospital course showed an extremity that had sensation that was intact to light touch, palpable pulses, a benign wound, motor intact to the toes, ankle, and knee. Knee range of motion was approximately 5 degrees to 50 degrees. She was slow to progress with PT and thus it was felt she would benefit from continued skilled therapy. Instructions: Continue with weightbearing as tolerated and range of motion as tolerated. It is okay to shower and get the wound wet as long as there is no drainage from the wound. Do not bathe or soak the wound. If there is any drainage from the wound keep the wound clean and dry and cover with dry gauze and tape. Change every 2- 3 days as needed if there is any drainage. Cover wound while showering if there is any drainage. Continue with physical and occupational therapy. Resume home diet. Report any fever over 101.5 Fahrenheit, uncontrolled pain, increased drainage, foul odor of drainage, new or increased calf pain or shortness of breath, or any other significant complaints. A 325mg dialy aspirin will be started after 5 more days of lovenox if not allergic. Continue with ANICETO hose on the operative extremity until instructed otherwise. No driving until instructed otherwise. Follow up in approximately 2-3 weeks. Procedures Performed: see notes below List Procedures: Left total knee arthroplasty, Renal Ultrasound, Results and Findings: Pending Mircobiology Results 03/31/19 06:00 Blood Blood Culture - Preliminary NO GROWTH AFTER 48 HOURS 03/31/19 13:30 Blood Blood Culture - Preliminary NO GROWTH AFTER 48 HOURS Lab Pending Results 03/29/19 06:52: WBC 9.7, RBC 3.23 L, Hgb 11.0 L, Hct 32.8 L, MCV 101.5 H, MCH 34.1 H, MCHC 33.5, RDW 13.2, Plt Count 191, MPV 9.3 03/29/19 06:52: Sodium 136, Plasma Sodium 137, Potassium 4.6, Chloride 99, Carbon Dioxide 34.3 H, Anion Gap 7.3, BUN 33 H, Creatinine 2.04 H D, Est GFR (Non-Af Amer) 25 L D, BUN/Creatinine Ratio 16.2, Random Glucose 175 H, Calcium 8.6 03/30/19 07:45: Sodium 136, Plasma Sodium 137, Potassium 4.9 H, Chloride 97, Carbon Dioxide 29.4, Anion Gap 14.5 H, BUN 45 H, Creatinine 3.01 H D, Est GFR (Non-Af Amer) 16 L D, BUN/Creatinine Ratio 15.0, Random Glucose 133 H, Calcium 9.0, Calcium Adj for Albumin 9.5, Total Bilirubin 0.7, AST 41, ALT 7 L, Alkaline Phosphatase 82, Total Protein 6.1 L, Albumin 3.0 L 03/30/19 10:40: pCO2 43.2, pO2 78.8 L, HCO3 21.9, Total CO2 23.2, Base Excess - 3.9 L, ABG pH 7.32 L, ABG O2 Sat (Measured) 94.8 03/30/19 10:51: Troponin I Less than 0.017, B-Natriuretic Peptide 226 03/30/19 11:25: Lactic Acid, Venous 0.9 03/30/19 13:25: Sodium 135, Plasma Sodium 136, Potassium 4.8 H, Chloride 97, Carbon Dioxide 30.5, Anion Gap 12.3, BUN 47 H, Creatinine 3.35 H, Est GFR (Non- Af Amer) 14 L, BUN/Creatinine Ratio 14.0, Random Glucose 149 H, Calcium 8.6 03/30/19 16:15: Urine Color Amanda, Urine Appearance Slightly cloudy, Urine pH 5.0, Ur Specific Al[place] >=1.030, Urine Protein 30 H, Urine Glucose (UA) Negative, Urine Ketones 5, Urine Blood 250 H, Urine Nitrate Negative, Urine Bilirubin 3 H, Urine Ictotest Negative, Prot Sulfosalicylic Acd 2+ H, Urine Urobilinogen Normal, Ur Leukocyte Esterase 75 H, Urine RBC >50 H, Urine WBC 5-10 H, Ur Epithelial Cells 0-5, Urine Bacteria 2+ H 03/30/19 16:25: Troponin I Less than 0.017 03/31/19 06:55: Sodium 136, Plasma Sodium 136, Potassium 4.9 H, Chloride 102, Carbon Dioxide 26.6, Anion Gap 12.3, BUN 48 H, Creatinine 2.50 H D, Est GFR (Non-Af Amer) 20 L D, BUN/Creatinine Ratio 19.2, Random Glucose 107, Calcium 8.1 03/31/19 10:33: Urine Color Yellow, Urine Appearance Clear, Urine pH 5.5, Ur Specific [place] 1.020, Urine Protein 15 H, Urine Glucose (UA) Negative, Urine Ketones Negative, Urine Blood 50 H, Urine Nitrate Negative, Urine Bilirubin 1 H, Urine Ictotest Negative, Prot Sulfosalicylic Acd 1+, Urine Urobilinogen Normal, Ur Leukocyte Esterase 75 H, Urine RBC Trace, Urine WBC 5-10 H, Ur Epithelial Cells Trace, Urine Bacteria Trace, Urine Culture Comments Culture to follow 04/01/19 06:41: WBC 8.5, RBC 2.49 L, Hgb 8.3 L, Hct 25.6 L, MCV 102.8 H, MCH 33.3 H, MCHC 32.4, RDW 13.0, Plt Count 176, MPV 9.1, Immature Gran % (Auto) 0.70 H, Immature Gran # (Auto) 0.06 H, Neutrophils % 75.5 H, Lymphocytes % 13.8 L, Monocytes % 8.7, Eosinophils % 0.9, Basophils % 0.4, Nucleated RBC % 0.0, Neutrophils # 6.4 H, Lymphocytes # 1.18 L, Monocytes # 0.7, Eosinophils # 0.1, Absolute Basophils 0.0 04/01/19 06:41: Sodium 140, Plasma Sodium 140, Potassium 4.6, Chloride 106, Carbon Dioxide 26.7, Anion Gap 11.9, BUN 37 H, Creatinine 1.49 H D, Est GFR (Non-Af Amer) 37 L D, BUN/Creatinine Ratio 24.8 H, Random Glucose 112 H, Calcium 8.2, Calcium Adj for Albumin 9.3, Total Bilirubin 0.5, AST 69 H, ALT 15 L, Alkaline Phosphatase 62, Total Protein 5.4 L, Albumin 2.2 L 04/02/19 05:55: WBC 9.0, RBC 2.88 L, Hgb 9.7 L, Hct 29.3 L, MCV 101.7 H, MCH 33.7 H, MCHC 33.1, RDW 12.9, Plt Count 195, MPV 8.8, Immature Gran % (Auto) 0.90 H, Immature Gran # (Auto) 0.08 H, Neutrophils % 73.4, Lymphocytes % 13.9 L, [place] cytes % 9.3 H, Eosinophils % 1.9, Basophils % 0.6, Nucleated RBC % 0.0, Neutrophils # 6.6 H, Lymphocytes # 1.24 L, Monocytes # 0.8, Eosinophils # 0.2, Absolute Basophils 0.1 04/02/19 05:55: Sodium 138, Plasma Sodium 139, Potassium 4.4, Chloride 105, Carbon Dioxide 28.0, Anion Gap 9.4, BUN 29 H, Creatinine 1.11, Est GFR (Non-Af Amer) 51 L D, BUN/Creatinine Ratio 26.1 H, Random Glucose 134 H, Calcium 9.1 04/04/19 07:15: Sodium 138, Plasma Sodium 139, Potassium 3.9, Chloride 98, Carbon Dioxide 32.4, Anion Gap 11.5, BUN 20, Creatinine 1.04, Est GFR (Non-Af Amer) 55 L, BUN/Creatinine Ratio 19.2, Random Glucose 141 H, Calcium 9.2 Discharge Location: Other Disposition: SNF Condition: Good Discharge Activity: Activity as tolerated, Weight bearing Discharge Diet: Consistent carbs [facility] Therapy: Physical Therapy, Occupation Therapy Referrals: Cm Sanchez MD [Staff Physician] - 04/19/19 1:15 pm Problem Oriented Discharge Instructions to Patient/Family: Total Knee Replacement, Care After, [id number] Additional Patient Instructions (free text): Follow up at [facility] Orthopedic Office with Dr. Sanchez on ThursdayApril 19 at 1:15pm. Complete Home Medications List: Complete Home Medication List: Insulin Aspart [Novolog] 0 - 20 unit SQ ACHS PRN 02/14/13 Nitroglycerin [Nitrostat] 0.4 mg SL [id number] PRN 02/14/13 Blood-Glucose Meter [Blood Glucose Monitoring] 1 ea MC QID 12/01/16 Cholecalciferol (Vitamin D3) [Vitamin D3] 2,000 unit PO Q7D 12/01/16 carvedilol 3.125 mg tablet 6.25 mg PO ONCE tab 10/06/17 furosemide 20 mg tablet 40 mg PO DAILY 10/06/17 acetaminophen 500 mg tablet 500 mg PO Q6H PRN 10/07/17 albuterol sulfate 2.5 mg IH QID PRN #180 ml 04/21/18 insulin degludec 100 unit/mL (3 mL) subcutaneous pen 56 unit SUB-Q HS ml 06/10/18 Albuterol Sulfate [Proventil Hfa] 2 inh INHALATION Q4H PRN 09/29/18 Allopurinol [Zyloprim] 300 mg PO DAILY 09/29/18 Diphenhydramine HCl [Children's Benadryl Allergy] 12.5 mg PO HS PRN 09/29/18 Ipratropium/Albuterol Sulfate [Iprat-Albut 0.5-3(2.5) mg/3 ml] 3 ml INHALATION Q4H PRN 09/29/18 lisinopril 10 mg tablet 5 mg PO DAILY #45 tab 11/01/18 levothyroxine 88 mcg tablet 88 mcg PO DAILY #30 tab 11/02/18 duloxetine 60 mg capsule,delayed release 60 mg PO DAILY #30 cap 01/19/19 Mag Salicylat/Acetaminoph/Caff [Back Pain-Off Tablet] 1 ea PO PRN PRN 03/28/19 Syrge-Ndl,Ins 0.5 ml Half Kael [Techlite Insulin Syringe] 0 ea .ROUTE .MEDSUPPLY 03/28/19 Syringe and Needle,Insulin,1Ml [Techlite Insulin Syringe] 0 ea .ROUTE .MEDSUPPLY 03/28/19 Enoxaparin Sodium [Lovenox] 40 mg SC Q24H disp.syrin 04/04/19 Ferrous Sulfate 325 mg PO DAILY tab 04/04/19 Sennosides/Docusate Sodium [Senokot-S] 2 tab PO HS tab 04/04/19
[2019-04-04] MEDS: CHOLECALCIFEROL 1,000 UNIT CAPSULE PO SCH (11:51)
[2019-04-04] MEDS: ACETAMINOPHEN 500 MG TABLET PO PRN (12:54)
[2019-04-04 16:01] VITALS: BP 144/64
[2019-04-05] MEDS ORDERED: FUROSEMIDE 20 MG TABLET PO SCH (09:00)
== END 2019-04-04 15:42 | DRG 469 ==
LOC: SUR 08:14 → MS 08:30
PROVIDERS: ADMIT Orthopaedic Surgery; ATTEND Orthopaedic Surgery
DX: E87.2 Acidosis; N18.3 Chronic kidney disease, stage 3 (moderate); M05.9 Rheumatoid arthritis with rheumatoid factor, unspecified; N30.01 Acute cystitis with hematuria; Z95.0 Presence of cardiac pacemaker; D62 Acute posthemorrhagic anemia; F41.8 Other specified anxiety disorders; K75.81 Nonalcoholic steatohepatitis (NASH); Z87.891 Personal history of nicotine dependence; J45.909 Unspecified asthma, uncomplicated; E78.5 Hyperlipidemia, unspecified; R09.02 Hypoxemia; Z79.4 Long term (current) use of insulin; I25.10 Atherosclerotic heart disease of native coronary artery without angina pectoris; T39.395A Adverse effect of other nonsteroidal anti-inflammatory drugs [NSAID], initial encounter; M17.12 Unilateral primary osteoarthritis, left knee; G92 Toxic encephalopathy; E03.9 Hypothyroidism, unspecified; E11.22 Type 2 diabetes mellitus with diabetic chronic kidney disease; N17.9 Acute kidney failure, unspecified; G47.33 Obstructive sleep apnea (adult) (pediatric); E87.5 Hyperkalemia
CPT/HCPCS: 36415; 36600; 71010; 71045; 73560; 76770; 80048; 80053; 81001; 82803; 83519; 83605; 83880; 84484; 85025; 85027; 87040; 87086; 93005; 94640; 94664; 97110; 97116; 97161; 97165; 97530; 97535; J2405